=== PATIENT | female | born 1985 | race Caucasian/White ===

== ENCOUNTER → 2016-10-21 | Outpatient (CLI) | payer OTHER | LOC: MW.LAB 11:02 | PROVIDERS: ATTEND Obstetrics & Gynecology | DX: D06.9 Carcinoma in situ of cervix, unspecified (principal) | CPT/HCPCS: 36415; 84144 ==

== ENCOUNTER 2017-05-28 21:58 | Inpatient (IN) | payer OTHER ==
[2017-05-28] MEDS ORDERED: Carboprost Tromethamine 250 MCG/1 ML Amp IM PRN (22:06)
[2017-05-28] MEDS ORDERED: Methylergonovine 0.2 MG/1 ML Amp IM PRN (22:06)
[2017-05-28] MEDS ORDERED: Sodium Chloride 0.9% 10 ML Syringe FLUSH PRN (22:06)
[2017-05-28] MEDS ORDERED: Nalbuphine 10 MG/1 ML Vial IVPUSH PRN (22:06)
[2017-05-28] MEDS ORDERED: Misoprostol 25 MCG (1/4 of 100 MCG) Tab VAG PRN (22:06)
[2017-05-28] MEDS ORDERED: Sodium Chloride 0.9% 2.5 ML Syringe FLUSH PRN (22:06)
[2017-05-28] MEDS ORDERED: Butorphanol 1 MG/ML SDV IVPUSH PRN (22:06)
[2017-05-28] MEDS ORDERED: Misoprostol 200 MCG Tab PO PRN (22:06)
[2017-05-28] MEDS ORDERED: Lidocaine 1% 50 ML MDV INJECT PRN (22:06)
[2017-05-28] MEDS ORDERED: Terbutaline 1 MG/ML SDV SUBCUT PRN (22:06)
[2017-05-28] MEDS ORDERED: Water For Irrigation,Sterile 1,000 ML Container IRR PRN (22:06)
[2017-05-28] MEDS ORDERED: Misoprostol 25 MCG (1/4 of 100 MCG) Tab VAG SCH (22:15)
[2017-05-28] MEDS ORDERED: Oxytocin/0.9 % Sodium Chloride 30 UNIT/500 ML BAG IV SCH ×2 (22:15)
[2017-05-28] MEDS: Lactated Ringers 1,000 ML IV SCH (22:30)
[2017-05-29] MEDS: Lactated Ringers 1,000 ML IV SCH (00:35)
[2017-05-29] MEDS ORDERED: Promethazine 25 MG/ML SDV ONE (01:23)
[2017-05-29] MEDS ORDERED: Ibuprofen 400 MG Tab PO PRN (02:08)
[2017-05-29] MEDS ORDERED: Benzocaine/Menthol 20%-0.5% Spray 78 GM Cannister TOP PRN (02:08)
[2017-05-29] MEDS ORDERED: Bisacodyl 10 MG Supp RECTAL PRN (02:08)
[2017-05-29] MEDS ORDERED: Witch Hazel Medicated Pads 40/Jar TOP PRN (02:08)
[2017-05-29] MEDS ORDERED: Docusate Sodium 100 MG Cap PO PRN (02:08)
[2017-05-29] MEDS ORDERED: Acetaminophen 500 MG Tab PO PRN (02:08)
[2017-05-29] MEDS ORDERED: Lanolin 100% Cream 7 GM Tube TOP PRN (02:08)
[2017-05-29] MEDS ORDERED: Ampicillin/Sulbactam Na 3 GM in Sodium Chloride 0.9% 100 ML IV SCH ×2 (02:15→07:54)
--- NOTE | 2017-05-29 02:38 | PCM.PREANE ---
Preanesthetic Assessment - Procedure Proposed Procedure: 4th degree laceration repair (EUA) - Anesthesia/Transfusion/Family Hx Anesthesia History: Prior Anesthesia Without Reaction Family History of Anesthesia Reaction: No Intubation History: Unknown - Review of Systems General: Other (vaginal pain (s/p )) Pulmonary: No Symptoms Cardiovascular: No Symptoms Gastrointestinal: Other (GERD of ) Neurological: Other Other: Reports: None - Physical Assessment NPO Status Date: 05/29/17 NPO Status Time: 18:00 (solids) Height: 5 ft 3 in Weight: 170 lb 2 oz ASA Class: 2E Mental Status: Alert & Oriented x3 Airway Class: Mallampati = 1 Dentition: Reports: Normal Dentition Thyro-Mental Finger Breadths: 3 Mouth Opening Finger Breadths: 3 ROM/Head Extension: Full Lungs: Clear to Auscultation, Normal Respiratory Effort Cardiovascular: Regular Rate, Regular Rhythm, No Murmurs - Lab Values: Laboratory Last Values WBC 11.70 K/uL (4.0-11.0) H 05/28/17 22:25 RBC 3.85 M/uL (4.30-5.90) L 05/28/17 22:25 Hgb 11.8 g/dL (12.0-16.0) L 05/28/17 22:25 Hct 35.8 % (36.0-46.0) L 05/28/17 22:25 MCV 93.0 fL (80.0-98.0) 05/28/17 22:25 MCH 30.6 pg (27.0-32.0) 05/28/17 22:25 MCHC 33.0 g/dL (31.0-37.0) 05/28/17 22:25 RDW Std Deviation 51.1 fl (28.0-62.0) 05/28/17 22:25 RDW Coeff of Mike 15 % (11.0-15.0) 05/28/17 22:25 Plt Count 219 K/uL (150-400) 05/28/17 22:25 MPV 11.70 fL (7.40-12.00) 05/28/17 22:25 Nucleated RBC % 0.0 /100WBC 05/28/17 22:25 Nucleated RBCs # 0 K/uL 05/28/17 22:25 Membrane Rupture POSITIVE 05/28/17 23:37 Blood Type A POSITIVE 05/28/17 22:25 Antibody Screen NEGATIVE 05/28/17 22:25 - Allergies Allergies/Adverse Reactions: Allergies Allergy/AdvReac Type Severity Reaction Status Date / Time sauk-[place] Allergy Hives Verified 05/28/17 22:23 - Blood Blood Available: Yes Product(s) Available: PRBC (T and S) - Anesthesia Plan Pre-Op Medication Ordered: None - Acknowledgements Anesthesia Type Planned: General Anesthesia (water intake over last 8 hrs) Pt an Appropriate Candidate for the Planned Anesthesia: Yes Alternatives and Risks of Anesthesia Discussed w Pt/Guardian: Yes Pt/Guardian Understands and Agrees with Anesthesia Plan: Yes PreAnesthesia Questionnaire - CURRENT (IN HOUSE) MEDS Current Meds: Current Medications Acetaminophen (Tylenol Extra Strength) 500 mg PO Q4H PRN PRN Reason: Pain Acetaminophen (Tylenol Extra Strength) 1,000 mg PO Q4H PRN PRN Reason: Pain Benzocaine/Menthol (Dermoplast Pain Relief 20%-0.5% [place]) 78 gm TOP ASDIRECTED PRN PRN Reason: Perineal Comfort Measure Bisacodyl (Dulcolax) 10 mg RECTAL .ONCE PRN PRN Reason: Constipation Butorphanol Tartrate (Stadol) 1 mg IVPUSH Q1H PRN PRN Reason: Pain Last Admin: 05/29/17 01:14 Dose: 1 mg Carboprost Tromethamine (Hemabate Ds) 250 mcg IM ASDIRECTED PRN PRN Reason: Post Hemorrhage Docusate Sodium (Colace) 100 mg PO BID PRN PRN Reason: Constipation Emollient Ointment (Lansinoh Hpa) 0 gm TOP ASDIRECTED PRN PRN Reason: Sore Nipples Lactated Ringer's (Ringers, Lactated) 1,000 mls @ 150 mls/hr IV ASDIRECTED AIDAN Last Admin: 05/29/17 00:35 Dose: 150 mls/hr Oxytocin/Sodium Chloride (Oxytocin 30 Unit/500 Ml-Ns) 30 unit in 500 mls @ 500 mls/hr IV TITRATE AIDAN Last Admin: 05/29/17 02:12 Dose: 999 mls/hr Oxytocin/Sodium Chloride (Oxytocin 30 Unit/500 Ml-Ns) 30 unit in 500 mls @ 2 mls/hr IV TITRATE AIDAN; 2 MUNITS/MIN PRN Reason: Protocol Last Titration: 05/28/17 23:33 Dose: 4 munits/min, 4 mls/hr Ampicillin Sodium/Sulbactam (Sodium 3 gm/ Sodium Chloride) 100 mls @ 200 mls/ hr IV Q6H AIDAN Ibuprofen (Motrin) 400 mg PO Q4H PRN PRN Reason: Pain Ibuprofen (Motrin) 800 mg PO Q6H PRN PRN Reason: Pain Lidocaine HCl (Xylocaine 1%) 50 ml INJECT .ONCE PRN PRN Reason: Laceration repair Last Admin: 05/29/17 01:00 Dose: 50 ml Methylergonovine Maleate (Methergine) 0.2 mg IM ASDIRECTED PRN PRN Reason: Post Hemorrhage Last Admin: 05/29/17 02:14 Dose: 0.2 mg Misoprostol (Cytotec) 200 mcg PO .ONCE PRN PRN Reason: Post Hemorrhage Misoprostol (Cytotec) 25 mcg VAG .ONCE AIDAN Misoprostol (Cytotec) 25 mcg VAG Q6H PRN PRN Reason: Cervical Ripening Nalbuphine HCl (Nubain) 10 mg IVPUSH Q1H PRN PRN Reason: Pain (severe 7-10) Oxycodone HCl (Oxycodone) 5 mg PO Q2H PRN PRN Reason: Pain Sodium Chloride (Saline Flush) 10 ml FLUSH ASDIRECTED PRN PRN Reason: Keep Vein Open Sodium Chloride (Saline Flush) 2.5 ml FLUSH ASDIRECTED PRN PRN Reason: Keep Vein Open Sterile Water (Sterile Water For Irrigation) 1,000 ml IRR ASDIRECTED PRN PRN Reason: delivery Last Admin: 05/29/17 01:00 Dose: 1,000 ml Terbutaline Sulfate (Brethine) 0.25 mg SUBCUT ASDIRECTED PRN PRN Reason: Tacysystole Witch Jessica (Tucks) 1 pad TOP ASDIRECTED PRN PRN Reason: comfort care Discontinued Medications Promethazine HCl (Phenergan) Confirm Administered Dose 25 mg .ROUTE .STK-MED ONE Stop: 05/29/17 01:24 Last Admin: 05/29/17 01:25 Dose: 25 mg
[2017-05-29] MEDS ORDERED: fentaNYL 100 MCG/2 ML SDV ONE ×2 (02:50→04:23)
[2017-05-29] MEDS ORDERED: Propofol 200 MG/20 ML SDV ONE (02:50)
[2017-05-29] MEDS ORDERED: Succinylcholine/Normal Saline 200 MG/10 ML Syringe ONE (02:50)
[2017-05-29] MEDS ORDERED: Sodium Chloride 0.9% 20 ML ONE (02:50)
[2017-05-29] MEDS ORDERED: Midazolam 1 MG/ML 2 ML SDV ONE (02:51)
[2017-05-29] MEDS ORDERED: Methylergonovine 0.2 MG/1 ML Amp ONE (03:36)
--- NOTE | 2017-05-29 04:51 | PCM.POSTAN ---
POST ANESTHESIA ASSESSMENT - MENTAL STATUS Mental Status: Oriented, Somnolent - VITAL SIGNS Pulse Rate: 100 SaO2: 100 Resp Rate: 20 Blood Pressure: 118/74 - RESPIRATORY Respiratory Status: Respiratory Rate WNL, Airway Patent, O2 Saturation Stable, Supplemental Oxygen (Return to OB ) - CARDIOVASCULAR CV Status: Pulse Rate WNL, Blood Pressure Stable - GASTROINTESTINAL GI Status: No Symptoms - POST OP HYDRATION Hydration Status: Adequate & Stable - OBSERVATIONS Free Text/Narrative:: Transfer back to OB.
--- NOTE | 2017-05-29 05:26 | PCM.DEL ---
L & D Note - General Info Date of Service: 05/29/17 Mother's Due Date: 06/02/17 - Delivery Note Labor: Augmented by Oxytocin Delivery Outcome: Livebirth Presentation: Vertex Nuchal Cord: None Anesthesia Type: Local Amniotic Fluid Description: Clear Episiotomy Type: None Laceration: 4th Degree Suture type: Other (repaired in OR ) Suture size: 2-0 Cord: 3 Vessels Estimated Blood Loss: 400 Whitlash: Bulb Syringe Provider: Nola Moy Score 1 min: 8 Score 5 min: 9 Delivery Comments (Free Text/Narrative):: Male delivered 3320g 3rd degree laceration repaired in OR - Patient Data Vitals - Most Recent: Last Vital Signs Temp 36.9 C 05/29/17 04:34 Pulse 96 05/29/17 05:02 Resp 16 05/29/17 05:02 BP 117/81 05/29/17 05:02 Pulse Ox 97 05/29/17 05:02 Weight - Most Recent: 77.167 kg I&O - Last 24 Hours: Intake & Output 05/28/17 05/28/17 05/29/17 14:59 22:59 06:59 Intake Total 1100 Output Total 200 Balance 900 Lab Results Last 24 Hours: Laboratory Results - last 24 hr 05/28/17 05/28/17 05/28/17 Range/Units 22:25 22:25 23:37 WBC 11.70 H (4.0-11.0) K/uL RBC 3.85 L (4.30-5.90) M/uL Hgb 11.8 L (12.0-16.0) g/dL Hct 35.8 L (36.0-46.0) % MCV 93.0 (80.0-98.0) fL MCH 30.6 (27.0-32.0) pg MCHC 33.0 (31.0-37.0) g/dL RDW Std Deviation 51.1 (28.0-62.0) fl RDW Coeff of Mike 15 (11.0-15.0) % Plt Count 219 (150-400) K/uL MPV 11.70 (7.40-12.00) fL Nucleated RBC % 0.0 /100WBC Nucleated RBCs # 0 K/uL Membrane Rupture POSITIVE Blood Type A POSITIVE Antibody Screen NEGATIVE Med Orders - Current: Current Medications Acetaminophen (Tylenol Extra Strength) 500 mg PO Q4H PRN PRN Reason: Pain Acetaminophen (Tylenol Extra Strength) 1,000 mg PO Q4H PRN PRN Reason: Pain Benzocaine/Menthol (Dermoplast Pain Relief 20%-0.5% [place]) 78 gm TOP ASDIRECTED PRN PRN Reason: Perineal Comfort Measure Bisacodyl (Dulcolax) 10 mg RECTAL .ONCE PRN PRN Reason: Constipation Butorphanol Tartrate (Stadol) 1 mg IVPUSH Q1H PRN PRN Reason: Pain Last Admin: 05/29/17 01:14 Dose: 1 mg Carboprost Tromethamine (Hemabate Ds) 250 mcg IM ASDIRECTED PRN PRN Reason: Post Hemorrhage Docusate Sodium (Colace) 100 mg PO BID AIDAN Emollient Ointment (Lansinoh Hpa) 0 gm TOP ASDIRECTED PRN PRN Reason: Sore Nipples Lactated Ringer's (Ringers, Lactated) 1,000 mls @ 150 mls/hr IV ASDIRECTED AIDAN Last Admin: 05/29/17 00:35 Dose: 150 mls/hr Oxytocin/Sodium Chloride (Oxytocin 30 Unit/500 Ml-Ns) 30 unit in 500 mls @ 500 mls/hr IV TITRATE AIDAN Last Admin: 05/29/17 02:12 Dose: 999 mls/hr Oxytocin/Sodium Chloride (Oxytocin 30 Unit/500 Ml-Ns) 30 unit in 500 mls @ 2 mls/hr IV TITRATE AIDAN; 2 MUNITS/MIN PRN Reason: Protocol Last Titration: 05/28/17 23:33 Dose: 4 munits/min, 4 mls/hr Ampicillin Sodium/Sulbactam (Sodium 3 gm/ Sodium Chloride) 100 mls @ 200 mls/ hr IV Q6H [facility] Last Admin: 05/29/17 03:06 Dose: 200 mls/hr Ibuprofen (Motrin) 400 mg PO Q4H PRN PRN Reason: Pain Ibuprofen (Motrin) 800 mg PO Q6H PRN PRN Reason: Pain Lidocaine HCl (Xylocaine 1%) 50 ml INJECT .ONCE PRN PRN Reason: Laceration repair Last Admin: 05/29/17 01:00 Dose: 50 ml Methylergonovine Maleate (Methergine) 0.2 mg IM ASDIRECTED PRN PRN Reason: Post Hemorrhage Last Admin: 05/29/17 02:14 Dose: 0.2 mg Misoprostol (Cytotec) 200 mcg PO .ONCE PRN PRN Reason: Post Hemorrhage Misoprostol (Cytotec) 25 mcg VAG .ONCE AIDAN Misoprostol (Cytotec) 25 mcg VAG Q6H PRN PRN Reason: Cervical Ripening Oxycodone HCl (Oxycodone) 5 mg PO Q2H PRN PRN Reason: Pain Sodium Chloride (Saline Flush) 10 ml FLUSH ASDIRECTED PRN PRN Reason: Keep Vein Open Sodium Chloride (Saline Flush) 2.5 ml FLUSH ASDIRECTED PRN PRN Reason: Keep Vein Open Sterile Water (Sterile Water For Irrigation) 1,000 ml IRR ASDIRECTED PRN PRN Reason: delivery Last Admin: 05/29/17 01:00 Dose: 1,000 ml Terbutaline Sulfate (Brethine) 0.25 mg SUBCUT ASDIRECTED PRN PRN Reason: Tacysystole Witch Jessica (Tucks) 1 pad TOP ASDIRECTED PRN PRN Reason: comfort care Discontinued Medications Docusate Sodium (Colace) 100 mg PO BID PRN PRN Reason: Constipation Fentanyl (Sublimaze) Confirm Administered Dose 100 mcg .ROUTE .STK-MED ONE Stop: 05/29/17 02:51 Fentanyl (Sublimaze) Confirm Administered Dose 100 mcg .ROUTE .STK-MED ONE Stop: 05/29/17 04:24 Sodium Chloride (Normal Saline) Confirm Administered Dose 20 mls @ as directed .ROUTE .STK-MED ONE Stop: 05/29/17 02:51 Methylergonovine Maleate (Methergine) Confirm Administered Dose 0.2 mg .ROUTE .STK-MED ONE Stop: 05/29/17 03:37 Midazolam HCl (Versed 1 Mg/Ml) Confirm Administered Dose 2 mg .ROUTE .STK-MED ONE Stop: 05/29/17 02:52 Nalbuphine HCl (Nubain) 10 mg IVPUSH Q1H PRN PRN Reason: Pain (severe 7-10) Promethazine HCl (Phenergan) Confirm Administered Dose 25 mg .ROUTE .STK-MED ONE Stop: 05/29/17 01:24 Last Admin: 05/29/17 01:25 Dose: 25 mg Propofol (Diprivan 20 Ml) Confirm Administered Dose 200 mg .ROUTE .STK-MED ONE Stop: 05/29/17 02:51 Succinylcholine Chloride (Succinylcholine In Ns Pf) Confirm Administered Dose 200 mg .ROUTE .STK-MED ONE Stop: 05/29/17 02:51 - Problem List & Annotations (1) Vaginal delivery SNOMED Code(s): 956518651 Code(s): O80 - ENCOUNTER FOR FULL-TERM UNCOMPLICATED DELIVERY Status: Acute Current Visit: Yes (2) Fourth degree perineal laceration SNOMED Code(s): 950273332 Code(s): O70.3 - FOURTH DEGREE PERINEAL LACERATION DURING DELIVERY Status: Acute Current Visit: Yes - Problem List Review Problem List Initiated/Reviewed/Updated: Yes - My Orders Last 24 Hours: My Active Orders 05/29/17 02:08 Patient Status [ADT] Routine May Shower [RC] ASDIRECTED Up ad Janice [RC] ASDIRECTED Vital Signs [RC] PER UNIT ROUTINE Acetaminophen [Tylenol Extra Strength] 1,000 mg PO Q4H PRN Acetaminophen [Tylenol Extra Strength] 500 mg PO Q4H PRN Benzocaine/Menthol [Dermoplast Pain Relief 20%-0.5% [place]] 78 gm TOP ASDIRECTED PRN Bisacodyl [Dulcolax] 10 mg RECTAL .ONCE PRN Ibuprofen [Motrin] 400 mg PO Q4H PRN Ibuprofen [Motrin] 800 mg PO Q6H PRN Lanolin [Lansinoh HPA] See Dose Instructions TOP ASDIRECTED PRN Witch Jessica [Tucks] 1 pad TOP ASDIRECTED PRN oxyCODONE 5 mg PO Q2H PRN Assess Lochia [WOMSER] Per Unit Routine Assess Uterine Involution [WOMSER] Per Unit Routine Peripheral IV Discontinue [OM.PC] Routine 05/29/17 02:15 Ampicillin/Sulbactam Na [Unasyn] 3 gm Sodium Chloride 0.9% [Normal Saline] 100 ml IV Q6H 05/29/17 09:00 Docusate Sodium [Colace] 100 mg PO BID 05/29/17 Breakfast Low Residue [Low Fiber Diet] [DIET] 05/30/17 05:11 HEMOGLOBIN/HEMATOCRIT,HH [HEME] Timed
--- NOTE | 2017-05-29 05:29 | PCM.OPNOTE ---
- General Post-Op/Procedure Note Date of Surgery/Procedure: 05/29/17 Operative Procedure(s): Examination under anaesthesia and Repair of fourth degree laceration Findings: After delivery 4th degree perineal laceration noted Laceration repaired in layers Rectal mucosa , then internal sphincter , then external sphincter then vaginal mucosa and perineal body Pre Op Diagnosis: S/p with fourth degree laceration Post-Op Diagnosis: same Anesthesia Technique: MAC Primary Surgeon: Adal Hernandez Anesthesia Provider: Robert Nieto Fluid Replacement, Intraop: 800 EBL in mLs: 100 Condition: Good Free Text/Narrative:: Intake & Output 05/28/17 05/28/17 05/29/17 14:59 22:59 06:59 Intake Total 1100 Output Total 200 Balance 900
[2017-05-29] MEDS: Acetaminophen 500 MG Tab PO PRN ×2 (08:06→16:14)
[2017-05-29] MEDS: Docusate Sodium 100 MG Cap PO SCH ×2 (08:06→21:01)
[2017-05-29] MEDS: oxyCODONE 5 MG Tab PO PRN ×2 (08:08→16:15)
--- NOTE | 2017-05-29 08:12 | PCM48HPAN ---
Post Anesthesia Note - EVALUATION WITHIN 48HRS OF ANESTHETIC Vital Signs in Normal Range: Yes Patient Participated in Evaluation: Yes Respiratory Function Stable: Yes Airway Patent: Yes Cardiovascular Function Stable: Yes Hydration Status Stable: Yes Pain Control Satisfactory: Yes Nausea and Vomiting Control Satisfactory: Yes Mental Status Recovered: Yes
--- NOTE | 2017-05-29 08:15 | PCM.PNPP ---
- General Info Date of Service: 05/29/17 Functional Status: Reports: Pain Controlled (using narcotic pain medications.), Tolerating Diet, Urinating. Denies: Ambulating - Review of Systems General: Reports: No Symptoms HEENT: Reports: No Symptoms Pulmonary: Reports: No Symptoms Cardiovascular: Reports: No Symptoms Gastrointestinal: Reports: No Symptoms Genitourinary: Reports: No Symptoms Musculoskeletal: Reports: No Symptoms Skin: Reports: No Symptoms Neurological: Reports: No Symptoms Psychiatric: Reports: No Symptoms - General Info Date of Service: 05/29/17 - Patient Data Vital Signs - Most Recent: Last Vital Signs Temp 36.9 C 05/29/17 06:10 Pulse 87 05/29/17 06:40 Resp 18 05/29/17 06:40 BP 140/88 05/29/17 06:40 Pulse Ox 96 05/29/17 06:40 Weight - Most Recent: 77.167 kg I&O - Last 24 Hours: Intake & Output 05/28/17 05/29/17 05/29/17 22:59 06:59 14:59 Intake Total 1900 Output Total 500 Balance 1400 Lab Results - Last 24 Hours: Laboratory Results - last 24 hr 05/28/17 05/28/17 05/28/17 Range/Units 22:25 22:25 23:37 WBC 11.70 H (4.0-11.0) K/uL RBC 3.85 L (4.30-5.90) M/uL Hgb 11.8 L (12.0-16.0) g/dL Hct 35.8 L (36.0-46.0) % MCV 93.0 (80.0-98.0) fL MCH 30.6 (27.0-32.0) pg MCHC 33.0 (31.0-37.0) g/dL RDW Std Deviation 51.1 (28.0-62.0) fl RDW Coeff of Mike 15 (11.0-15.0) % Plt Count 219 (150-400) K/uL MPV 11.70 (7.40-12.00) fL Nucleated RBC % 0.0 /100WBC Nucleated RBCs # 0 K/uL Membrane Rupture POSITIVE Blood Type A POSITIVE Antibody Screen NEGATIVE Med Orders - Current: Current Medications Acetaminophen (Tylenol Extra Strength) 500 mg PO Q4H PRN PRN Reason: Pain Last Admin: 05/29/17 08:06 Dose: 500 mg Acetaminophen (Tylenol Extra Strength) 1,000 mg PO Q4H PRN PRN Reason: Pain Benzocaine/Menthol (Dermoplast Pain Relief 20%-0.5% [place]) 78 gm TOP ASDIRECTED PRN PRN Reason: Perineal Comfort Measure Last Admin: 05/29/17 06:37 Dose: 1 canister Bisacodyl (Dulcolax) 10 mg RECTAL .ONCE PRN PRN Reason: Constipation Butorphanol Tartrate (Stadol) 1 mg IVPUSH Q1H PRN PRN Reason: Pain Last Admin: 05/29/17 01:14 Dose: 1 mg Carboprost Tromethamine (Hemabate Ds) 250 mcg IM ASDIRECTED PRN PRN Reason: Post Hemorrhage Docusate Sodium (Colace) 100 mg PO BID AIDAN Last Admin: 05/29/17 08:06 Dose: 100 mg Emollient Ointment (Lansinoh Hpa) 0 gm TOP ASDIRECTED PRN PRN Reason: Sore Nipples Last Admin: 05/29/17 06:38 Dose: 1 tube Lactated Ringer's (Ringers, Lactated) 1,000 mls @ 150 mls/hr IV ASDIRECTED AIDAN Last Admin: 05/29/17 00:35 Dose: 150 mls/hr Oxytocin/Sodium Chloride (Oxytocin 30 Unit/500 Ml-Ns) 30 unit in 500 mls @ 500 mls/hr IV TITRATE AIDAN Last Admin: 05/29/17 02:12 Dose: 999 mls/hr Oxytocin/Sodium Chloride (Oxytocin 30 Unit/500 Ml-Ns) 30 unit in 500 mls @ 2 mls/hr IV TITRATE AIDAN; 2 MUNITS/MIN PRN Reason: Protocol Last Titration: 05/28/17 23:33 Dose: 4 munits/min, 4 mls/hr Ampicillin Sodium/Sulbactam (Sodium 3 gm/ Sodium Chloride) 100 mls @ 200 mls/ hr IV Q6H AIDAN Ibuprofen (Motrin) 400 mg PO Q4H PRN PRN Reason: Pain Ibuprofen (Motrin) 800 mg PO Q6H PRN PRN Reason: Pain Lidocaine HCl (Xylocaine 1%) 50 ml INJECT .ONCE PRN PRN Reason: Laceration repair Last Admin: 05/29/17 01:00 Dose: 50 ml Methylergonovine Maleate (Methergine) 0.2 mg IM ASDIRECTED PRN PRN Reason: Post Hemorrhage Last Admin: 05/29/17 02:14 Dose: 0.2 mg Misoprostol (Cytotec) 200 mcg PO .ONCE PRN PRN Reason: Post Hemorrhage Misoprostol (Cytotec) 25 mcg VAG .ONCE AIDAN Misoprostol (Cytotec) 25 mcg VAG Q6H PRN PRN Reason: Cervical Ripening Oxycodone HCl (Oxycodone) 5 mg PO Q2H PRN PRN Reason: Pain Last Admin: 05/29/17 08:08 Dose: 5 mg Sodium Chloride (Saline Flush) 10 ml FLUSH ASDIRECTED PRN PRN Reason: Keep Vein Open Sodium Chloride (Saline Flush) 2.5 ml FLUSH ASDIRECTED PRN PRN Reason: Keep Vein Open Sterile Water (Sterile Water For Irrigation) 1,000 ml IRR ASDIRECTED PRN PRN Reason: delivery Last Admin: 05/29/17 01:00 Dose: 1,000 ml Terbutaline Sulfate (Brethine) 0.25 mg SUBCUT ASDIRECTED PRN PRN Reason: Tacysystole Witch Jessica (Tucks) 1 pad TOP ASDIRECTED PRN PRN Reason: comfort care Last Admin: 05/29/17 06:37 Dose: 1 tub Discontinued Medications Docusate Sodium (Colace) 100 mg PO BID PRN PRN Reason: Constipation Fentanyl (Sublimaze) Confirm Administered Dose 100 mcg .ROUTE .STK-MED ONE Stop: 05/29/17 02:51 Fentanyl (Sublimaze) Confirm Administered Dose 100 mcg .ROUTE .STK-MED ONE Stop: 05/29/17 04:24 Ampicillin Sodium/Sulbactam (Sodium 3 gm/ Sodium Chloride) 100 mls @ 200 mls/ hr IV Q6H [facility] Last Admin: 05/29/17 03:06 Dose: 200 mls/hr Sodium Chloride (Normal Saline) Confirm Administered Dose 20 mls @ as directed .ROUTE .STK-MED ONE Stop: 05/29/17 02:51 Ampicillin Sodium/Sulbactam (Sodium 3 gm/ Sodium Chloride) 100 mls @ 200 mls/ hr IV Q6H [facility] Methylergonovine Maleate (Methergine) Confirm Administered Dose 0.2 mg .ROUTE .STK-MED ONE Stop: 05/29/17 03:37 Midazolam HCl (Versed 1 Mg/Ml) Confirm Administered Dose 2 mg .ROUTE .STK-MED ONE Stop: 05/29/17 02:52 Nalbuphine HCl (Nubain) 10 mg IVPUSH Q1H PRN PRN Reason: Pain (severe 7-10) Promethazine HCl (Phenergan) Confirm Administered Dose 25 mg .ROUTE .STK-MED ONE Stop: 05/29/17 01:24 Last Admin: 05/29/17 01:25 Dose: 25 mg Propofol (Diprivan 20 Ml) Confirm Administered Dose 200 mg .ROUTE .STK-MED ONE Stop: 05/29/17 02:51 Succinylcholine Chloride (Succinylcholine In Ns Pf) Confirm Administered Dose 200 mg .ROUTE .STK-MED ONE Stop: 05/29/17 02:51 - Interaction Infant Disposition, : in Room with Family Infant Interaction: Holding Infant Infant Feeding: Breastfed Infant; Nursed Well Support Person: - Recovery Exam Fundal Tone: Firm Fundal Level: 1 Fingerbreadths Below Umbilicus Fundal Placement: Midline Lochia Amount: Scant Lochia Color: Rubra/Red Perineum Description: Other (see below) Other Perinuem Description: 4th degree with repair done in OR under general anesthisa. Episiotomy/Laceration: Approximated - Exam General: Alert, Oriented Lungs: Normal Respiratory Effort GI/Abdominal Exam: Normal Bowel Sounds, Soft, Non-Tender, No Distention, No Mass Extremities: Normal Inspection, Non-Tender, No Pedal Edema Skin: Dry, Intact Neurological: No New Focal Deficit Psy/Mental Status: Alert, Normal Affect, Normal Mood - Problem List & Annotations (1) Fourth degree perineal laceration SNOMED Code(s): 641215606 Code(s): O70.3 - FOURTH DEGREE PERINEAL LACERATION DURING DELIVERY Status: Acute Current Visit: Yes (2) Vaginal delivery SNOMED Code(s): 682200817 Code(s): O80 - ENCOUNTER FOR FULL-TERM UNCOMPLICATED DELIVERY Status: Acute Current Visit: Yes - Problem List Review Problem List Initiated/Reviewed/Updated: Yes - My Orders Last 24 Hours: My Active Orders 05/28/17 22:06 Patient Status [ADT] Routine May Shower [RC] ASDIRECTED Notify Provider [RC] PRN Oxygen Therapy [RC] ASDIRECTED Up ad Janice [RC] ASDIRECTED Vital Signs [RC] PER UNIT ROUTINE Butorphanol [Stadol] 1 mg IVPUSH Q1H PRN Carboprost Tromethamine [Hemabate DS] 250 mcg IM ASDIRECTED PRN Lidocaine 1% [Xylocaine 1%] 50 ml INJECT .ONCE PRN Methylergonovine [Methergine] 0.2 mg IM ASDIRECTED PRN Misoprostol [Cytotec] 200 mcg PO .ONCE PRN Misoprostol [Cytotec] 25 mcg VAG Q6H PRN Sodium Chloride 0.9% [Saline Flush] 10 ml FLUSH ASDIRECTED PRN Sodium Chloride 0.9% [Saline Flush] 2.5 ml FLUSH ASDIRECTED PRN Terbutaline [Brethine] 0.25 mg SUBCUT ASDIRECTED PRN Water For Irrigation,Sterile [Sterile Water for Irrigation] 1,000 ml IRR ASDIRECTED PRN Scalp Electrode [WOMSER] Per Unit Routine Peripheral IV Insertion Adult [OM.PC] Routine Resuscitation Status Routine 05/28/17 22:15 Lactated Ringers [Ringers, Lactated] 1,000 ml IV ASDIRECTED Misoprostol [Cytotec] 25 mcg VAG .ONCE Oxytocin/0.9 % Sodium Chloride [Oxytocin 30 Unit/500 ML-NS] 30 unit in 500 ml IV TITRATE Oxytocin/0.9 % Sodium Chloride [Oxytocin 30 Unit/500 ML-NS] 30 unit in 500 ml IV TITRATE Medication Administration Instruction [OM.PC] Q3H - Assessment Assessment:: PPD#1 after precipitous labor and delivery with 4th degree lacerations, total active labor was approximately 1 hour. Pain is controlled with oral pain medications, has not yet ambulated since repair of lacerations. She is well, minimal lochia. - Plan Plan:: Continue care. Continue with perineal care, stool softeners and antibiotics.
[2017-05-29] MEDS: Ampicillin/Sulbactam Na 3 GM in Sodium Chloride 0.9% 100 ML IV SCH ×3 (08:56→22:35)
--- NOTE | 2017-05-29 11:59 | OR ---
SURGEON: JANINA MEJIA DATE OF PROCEDURE: 05/29/2017 PREOPERATIVE DIAGNOSIS: A 32-year-old, G1, P0, at 39 weeks and 3 days, for induction of labor secondary to IVF . POSTOPERATIVE DIAGNOSES: Induction of labor for IVF , status post normal spontaneous vaginal delivery, fourth-degree laceration. PROCEDURES: Normal spontaneous vaginal delivery, Examination under anesthesia, Repair of fourth-degree laceration. ESTIMATED BLOOD LOSS: 400 mL for vaginal delivery and 100 mL for EUA. IV FLUIDS: 800 mL. FINDINGS: A live male delivered at 0100 hours. scores were 8 and 9. Weight was 3320 grams. The patient received Methergine 0.2 mg x1 and 30 units of Pitocin x2. The perineum was inspected and revealed a fourth-degree laceration. As a result, Anesthesia was consulted, and repair was done in the operating room under MAC anesthesia. ANESTHESIA: MAC. BACKGROUND: The patient is a 32-year-old, G1, P0, who had an IVF , was followed up, and was scheduled for induction of labor. The patient otherwise had a low-risk . On admission patient was 4cm dilated she was started on pitocin and made cervical change to Full dilatation. Patient was encouraged to push and delivered a live male . After delivery uterus was noted to be atonic so methergine was given with IV pitocin 30IU in saline running. Perineum was inspected and a fourth degree laceration was noted . at this point Anaesthesia was informed and patient taken to the OR for repair DESCRIPTION OF PROCEDURE: The patient was admitted for induction. She was found to be 4 cm dilated. Pitocin was started. After the Pitocin was started, the patient changed to 5 cm and fully dilated within 4 hours. The patient then delivered the head, followed by the anterior and posterior shoulders, and the body. The baby was placed on the mother's abdomen ,delayed cord clamping was done. Upon inspection of the perineum, a fourth- degree laceration was noted. The vaginal mucosa that was bleeding was sutured. Anesthesia was consulted. The patient was then taken to the operating room and an examination under anesthesia yielded extensive tear of the sphincters, internal and external sphincters, into the rectal mucosa. The repair was done in layers. Continuous non locking suturing was done with Vicryl 2-0 in the rectal mucosa, the internal sphincter was repaired with 2-0 Vicryl continuous non locking stitches , and external sphincter was repaired with mattress sutures. The vaginal mucosa was then repaired with interlocking sutures of 2-0 Monocryl. The rectum was examined after the procedure and was found to be intact with a good tone. The patient tolerated the procedure well and was taken to the recovery room in a stable condition. The patient will continue a low- residue diet and antibiotics for 24hrs RICHELLE GAXIOLA /[id number] MTDD
[2017-05-29] MEDS: Ibuprofen 800 MG Tab PO PRN ×2 (12:11→22:00)
[2017-05-30] MEDS: Ibuprofen 800 MG Tab PO PRN (04:25)
[2017-05-30] MEDS: Ampicillin/Sulbactam Na 3 GM in Sodium Chloride 0.9% 100 ML IV SCH ×2 (05:06→11:01)
--- NOTE | 2017-05-30 08:11 | PCM.PNPP ---
<Cindy El - Last Filed: 05/30/17 08:17> - General Info Date of Service: 05/30/17 Functional Status: Reports: Pain Controlled, Tolerating Diet, Ambulating, Urinating - Review of Systems General: Denies: Fever, Weakness Pulmonary: Denies: Shortness of Breath, Pleuritic Chest Pain, Cough Cardiovascular: Denies: Chest Pain, Palpitations, Dyspnea on Exertion Gastrointestinal: Denies: Abdominal Pain Genitourinary: Denies: Dysuria - General Info Date of Service: 05/30/17 - Patient Data Vital Signs - Most Recent: Last Vital Signs Temp 36.6 C 05/30/17 06:00 Pulse 88 05/30/17 06:00 Resp 17 05/30/17 06:00 BP 99/63 05/30/17 06:00 Pulse Ox 98 05/30/17 06:00 Weight - Most Recent: 77.167 kg I&O - Last 24 Hours: Intake & Output 05/29/17 05/30/17 05/30/17 22:59 06:59 14:59 Intake Total 100 Balance 100 Lab Results - Last 24 Hours: Laboratory Results - last 24 hr 05/30/17 Range/Units 05:31 Hgb 8.7 L (12.0-16.0) g/dL Hct 26.2 L (36.0-46.0) % Med Orders - Current: Current Medications Acetaminophen (Tylenol Extra Strength) 500 mg PO Q4H PRN PRN Reason: Pain Last Admin: 05/29/17 16:14 Dose: 500 mg Acetaminophen (Tylenol Extra Strength) 1,000 mg PO Q4H PRN PRN Reason: Pain Benzocaine/Menthol (Dermoplast Pain Relief 20%-0.5% [place]) 78 gm TOP ASDIRECTED PRN PRN Reason: Perineal Comfort Measure Last Admin: 05/29/17 06:37 Dose: 1 canister Bisacodyl (Dulcolax) 10 mg RECTAL .ONCE PRN PRN Reason: Constipation Butorphanol Tartrate (Stadol) 1 mg IVPUSH Q1H PRN PRN Reason: Pain Last Admin: 05/29/17 01:14 Dose: 1 mg Carboprost Tromethamine (Hemabate Ds) 250 mcg IM ASDIRECTED PRN PRN Reason: Post Hemorrhage Docusate Sodium (Colace) 100 mg PO BID [facility] Last Admin: 05/29/17 21:01 Dose: 100 mg Emollient Ointment (Lansinoh Hpa) 0 gm TOP ASDIRECTED PRN PRN Reason: Sore Nipples Last Admin: 05/29/17 06:38 Dose: 1 tube Lactated Ringer's (Ringers, Lactated) 1,000 mls @ 150 mls/hr IV ASDIRECTED [facility] Last Admin: 05/29/17 00:35 Dose: 150 mls/hr Oxytocin/Sodium Chloride (Oxytocin 30 Unit/500 Ml-Ns) 30 unit in 500 mls @ 500 mls/hr IV TITRATE [facility] Last Admin: 05/29/17 02:12 Dose: 999 mls/hr Oxytocin/Sodium Chloride (Oxytocin 30 Unit/500 Ml-Ns) 30 unit in 500 mls @ 2 mls/hr IV TITRATE [facility]; 2 MUNITS/MIN PRN Reason: Protocol Last Titration: 05/28/17 23:33 Dose: 4 munits/min, 4 mls/hr Ampicillin Sodium/Sulbactam (Sodium 3 gm/ Sodium Chloride) 100 mls @ 200 mls/ hr IV Q6H [facility] Last Admin: 05/30/17 05:06 Dose: 200 mls/hr Ibuprofen (Motrin) 400 mg PO Q4H PRN PRN Reason: Pain Ibuprofen (Motrin) 800 mg PO Q6H PRN PRN Reason: Pain Last Admin: 05/30/17 04:25 Dose: 800 mg Lidocaine HCl (Xylocaine 1%) 50 ml INJECT .ONCE PRN PRN Reason: Laceration repair Last Admin: 05/29/17 01:00 Dose: 50 ml Methylergonovine Maleate (Methergine) 0.2 mg IM ASDIRECTED PRN PRN Reason: Post Hemorrhage Last Admin: 05/29/17 02:14 Dose: 0.2 mg Misoprostol (Cytotec) 200 mcg PO .ONCE PRN PRN Reason: Post Hemorrhage Misoprostol (Cytotec) 25 mcg VAG .ONCE AIDAN Misoprostol (Cytotec) 25 mcg VAG Q6H PRN PRN Reason: Cervical Ripening Oxycodone HCl (Oxycodone) 5 mg PO Q2H PRN PRN Reason: Pain Last Admin: 05/29/17 16:15 Dose: 5 mg Sodium Chloride (Saline Flush) 10 ml FLUSH ASDIRECTED PRN PRN Reason: Keep Vein Open Sodium Chloride (Saline Flush) 2.5 ml FLUSH ASDIRECTED PRN PRN Reason: Keep Vein Open Sterile Water (Sterile Water For Irrigation) 1,000 ml IRR ASDIRECTED PRN PRN Reason: delivery Last Admin: 05/29/17 01:00 Dose: 1,000 ml Terbutaline Sulfate (Brethine) 0.25 mg SUBCUT ASDIRECTED PRN PRN Reason: Tacysystole Witch Jessica (Tucks) 1 pad TOP ASDIRECTED PRN PRN Reason: comfort care Last Admin: 05/29/17 06:37 Dose: 1 tub Discontinued Medications Docusate Sodium (Colace) 100 mg PO BID PRN PRN Reason: Constipation Fentanyl (Sublimaze) Confirm Administered Dose 100 mcg .ROUTE .STK-MED ONE Stop: 05/29/17 02:51 Fentanyl (Sublimaze) Confirm Administered Dose 100 mcg .ROUTE .STK-MED ONE Stop: 05/29/17 04:24 Ampicillin Sodium/Sulbactam (Sodium 3 gm/ Sodium Chloride) 100 mls @ 200 mls/ hr IV Q6H [facility] Last Admin: 05/29/17 03:06 Dose: 200 mls/hr Sodium Chloride (Normal Saline) Confirm Administered Dose 20 mls @ as directed .ROUTE .STK-MED ONE Stop: 05/29/17 02:51 Ampicillin Sodium/Sulbactam (Sodium 3 gm/ Sodium Chloride) 100 mls @ 200 mls/ hr IV Q6H [facility] Methylergonovine Maleate (Methergine) Confirm Administered Dose 0.2 mg .ROUTE .STK-MED ONE Stop: 05/29/17 03:37 Midazolam HCl (Versed 1 Mg/Ml) Confirm Administered Dose 2 mg .ROUTE .STK-MED ONE Stop: 05/29/17 02:52 Nalbuphine HCl (Nubain) 10 mg IVPUSH Q1H PRN PRN Reason: Pain (severe 7-10) Promethazine HCl (Phenergan) Confirm Administered Dose 25 mg .ROUTE .STK-MED ONE Stop: 05/29/17 01:24 Last Admin: 05/29/17 01:25 Dose: 25 mg Propofol (Diprivan 20 Ml) Confirm Administered Dose 200 mg .ROUTE .STK-MED ONE Stop: 05/29/17 02:51 Succinylcholine Chloride (Succinylcholine In Ns Pf) Confirm Administered Dose 200 mg .ROUTE .STK-MED ONE Stop: 05/29/17 02:51 - Interaction Infant Disposition, : [place] in Room with Family Infant Interaction: Holding Infant Feeding: Breastfed ; Nursed Well Support Person: - Recovery Exam Fundal Tone: Firm Fundal Level: At Umbilicus Fundal Placement: Midline Lochia Amount: Small Lochia Color: Rubra/Red Perineum Description: Other (see below) Other Perinuem Description: 4th degree laceration Episiotomy/Laceration: None Bladder Status: Voiding Urinary Elimination: Voided - Exam General: Alert, Oriented Neck: Supple Lungs: Clear to Auscultation, Normal Respiratory Effort Cardiovascular: Regular Rate, Regular Rhythm GI/Abdominal Exam: Normal Bowel Sounds, Soft, Non-Tender, No Distention Extremities: Normal Inspection, Pedal Edema (trace) Skin: Warm, Dry, Intact - Problem List & Annotations (1) Fourth degree perineal laceration SNOMED Code(s): 350259697 Code(s): O70.3 - FOURTH DEGREE PERINEAL LACERATION DURING DELIVERY Status: Acute Current Visit: Yes (2) Vaginal delivery SNOMED Code(s): 992306416 Code(s): O80 - ENCOUNTER FOR FULL-TERM UNCOMPLICATED DELIVERY Status: Acute Current Visit: Yes - Problem List Review Problem List Initiated/Reviewed/Updated: Yes - Assessment Assessment:: PPD#2 after precipitous labor and delivery with 4th degree lacerations. Pain is controlled with oral pain medications, minimal lochia. Breast feeding well. Patient will continue stool softener. Discharge home today. - Plan Plan:: Discharge home today. Nothing in the vagina for 6 weeks. Continue PNV while breast feeding. Can use OTC ibuprofen/tylenol as needed for pain. Instructed patient to call if she develops fever greater than 101 or bleeding through a large pad an hour. F/U with [facility] in 6 weeks. <Nola Moy - Last Filed: 05/30/17 08:56> - Patient Data Vital Signs - Most Recent: Last Vital Signs Temp 36.6 C 05/30/17 06:00 Pulse 88 05/30/17 06:00 Resp 17 05/30/17 06:00 BP 99/63 05/30/17 06:00 Pulse Ox 98 05/30/17 06:00 I&O - Last 24 Hours: Intake & Output 05/29/17 05/30/17 05/30/17 22:59 06:59 14:59 Intake Total 100 Balance 100 Lab Results - Last 24 Hours: Laboratory Results - last 24 hr 05/30/17 Range/Units 05:31 Hgb 8.7 L (12.0-16.0) g/dL Hct 26.2 L (36.0-46.0) % Med Orders - Current: Current Medications Acetaminophen (Tylenol Extra Strength) 500 mg PO Q4H PRN PRN Reason: Pain Last Admin: 05/29/17 16:14 Dose: 500 mg Acetaminophen (Tylenol Extra Strength) 1,000 mg PO Q4H PRN PRN Reason: Pain Benzocaine/Menthol (Dermoplast Pain Relief 20%-0.5% [place]) 78 gm TOP ASDIRECTED PRN PRN Reason: Perineal Comfort Measure Last Admin: 05/29/17 06:37 Dose: 1 canister Bisacodyl (Dulcolax) 10 mg RECTAL .ONCE PRN PRN Reason: Constipation Butorphanol Tartrate (Stadol) 1 mg IVPUSH Q1H PRN PRN Reason: Pain Last Admin: 05/29/17 01:14 Dose: 1 mg Carboprost Tromethamine (Hemabate Ds) 250 mcg IM ASDIRECTED PRN PRN Reason: Post Hemorrhage Docusate Sodium (Colace) 100 mg PO BID [facility] Last Admin: 05/29/17 21:01 Dose: 100 mg Emollient Ointment (Lansinoh Hpa) 0 gm TOP ASDIRECTED PRN PRN Reason: Sore Nipples Last Admin: 05/29/17 06:38 Dose: 1 tube Lactated Ringer's (Ringers, Lactated) 1,000 mls @ 150 mls/hr IV ASDIRECTED [facility] Last Admin: 05/29/17 00:35 Dose: 150 mls/hr Oxytocin/Sodium Chloride (Oxytocin 30 Unit/500 Ml-Ns) 30 unit in 500 mls @ 500 mls/hr IV TITRATE [facility] Last Admin: 05/29/17 02:12 Dose: 999 mls/hr Oxytocin/Sodium Chloride (Oxytocin 30 Unit/500 Ml-Ns) 30 unit in 500 mls @ 2 mls/hr IV TITRATE [facility]; 2 MUNITS/MIN PRN Reason: Protocol Last Titration: 05/28/17 23:33 Dose: 4 munits/min, 4 mls/hr Ampicillin Sodium/Sulbactam (Sodium 3 gm/ Sodium Chloride) 100 mls @ 200 mls/ hr IV Q6H [facility] Last Admin: 05/30/17 05:06 Dose: 200 mls/hr Ibuprofen (Motrin) 400 mg PO Q4H PRN PRN Reason: Pain Ibuprofen (Motrin) 800 mg PO Q6H PRN PRN Reason: Pain Last Admin: 05/30/17 04:25 Dose: 800 mg Lidocaine HCl (Xylocaine 1%) 50 ml INJECT .ONCE PRN PRN Reason: Laceration repair Last Admin: 05/29/17 01:00 Dose: 50 ml Methylergonovine Maleate (Methergine) 0.2 mg IM ASDIRECTED PRN PRN Reason: Post Hemorrhage Last Admin: 05/29/17 02:14 Dose: 0.2 mg Misoprostol (Cytotec) 200 mcg PO .ONCE PRN PRN Reason: Post Hemorrhage Misoprostol (Cytotec) 25 mcg VAG .ONCE [facility] Misoprostol (Cytotec) 25 mcg VAG Q6H PRN PRN Reason: Cervical Ripening Oxycodone HCl (Oxycodone) 5 mg PO Q2H PRN PRN Reason: Pain Last Admin: 05/29/17 16:15 Dose: 5 mg Sodium Chloride (Saline Flush) 10 ml FLUSH ASDIRECTED PRN PRN Reason: Keep Vein Open Sodium Chloride (Saline Flush) 2.5 ml FLUSH ASDIRECTED PRN PRN Reason: Keep Vein Open Sterile Water (Sterile Water For Irrigation) 1,000 ml IRR ASDIRECTED PRN PRN Reason: delivery Last Admin: 05/29/17 01:00 Dose: 1,000 ml Terbutaline Sulfate (Brethine) 0.25 mg SUBCUT ASDIRECTED PRN PRN Reason: Tacysystole Witch Jessica (Tucks) 1 pad TOP ASDIRECTED PRN PRN Reason: comfort care Last Admin: 05/29/17 06:37 Dose: 1 tub Discontinued Medications Docusate Sodium (Colace) 100 mg PO BID PRN PRN Reason: Constipation Fentanyl (Sublimaze) Confirm Administered Dose 100 mcg .ROUTE .STK-MED ONE Stop: 05/29/17 02:51 Fentanyl (Sublimaze) Confirm Administered Dose 100 mcg .ROUTE .STK-MED ONE Stop: 05/29/17 04:24 Ampicillin Sodium/Sulbactam (Sodium 3 gm/ Sodium Chloride) 100 mls @ 200 mls/ hr IV Q6H [facility] Last Admin: 05/29/17 03:06 Dose: 200 mls/hr Sodium Chloride (Normal Saline) Confirm Administered Dose 20 mls @ as directed .ROUTE .STK-MED ONE Stop: 05/29/17 02:51 Ampicillin Sodium/Sulbactam (Sodium 3 gm/ Sodium Chloride) 100 mls @ 200 mls/ hr IV Q6H [facility] Methylergonovine Maleate (Methergine) Confirm Administered Dose 0.2 mg .ROUTE .STK-MED ONE Stop: 05/29/17 03:37 Midazolam HCl (Versed 1 Mg/Ml) Confirm Administered Dose 2 mg .ROUTE .STK-MED ONE Stop: 05/29/17 02:52 Nalbuphine HCl (Nubain) 10 mg IVPUSH Q1H PRN PRN Reason: Pain (severe 7-10) Promethazine HCl (Phenergan) Confirm Administered Dose 25 mg .ROUTE .STK-MED ONE Stop: 05/29/17 01:24 Last Admin: 05/29/17 01:25 Dose: 25 mg Propofol (Diprivan 20 Ml) Confirm Administered Dose 200 mg .ROUTE .STK-MED ONE Stop: 05/29/17 02:51 Succinylcholine Chloride (Succinylcholine In Ns Pf) Confirm Administered Dose 200 mg .ROUTE .STK-MED ONE Stop: 05/29/17 02:51 - Problem List & Annotations (1) Fourth degree perineal laceration SNOMED Code(s): 007813168 Code(s): O70.3 - FOURTH DEGREE PERINEAL LACERATION DURING DELIVERY Status: Acute Current Visit: Yes (2) Vaginal delivery SNOMED Code(s): 366353943 Code(s): O80 - ENCOUNTER FOR FULL-TERM UNCOMPLICATED DELIVERY Status: Acute Current Visit: Yes - Problem List Review Problem List Initiated/Reviewed/Updated: Yes - Plan Plan:: Agree with above, will continue stool softeners for at least 2 weeks.
[2017-05-30] MEDS: oxyCODONE 5 MG Tab PO PRN (08:58)
[2017-05-30] MEDS: Docusate Sodium 100 MG Cap PO SCH (08:59)
== END 2017-05-30 13:45 | disposition home or self-care (01) | DRG 775 ==
LOC: MW.OBCHECK 21:58 → MW.OB 21:59 → MW.OBCHECK 22:06 → OBSVTOIN 05-29 01:00 → MW.OB 05-29 04:26
PROVIDERS: ADMIT Obstetrics & Gynecology; ATTEND Obstetrics & Gynecology
PROC: 10E0XZZ Delivery of Products of Conception, External Approach (ICD-10-PCS; principal; 2017-05-29)
PROC: 0DQP0ZZ Repair Rectum, Open Approach (ICD-10-PCS; 2017-05-29)
PROC: 3E0P3VZ Introduction of Hormone into Female Reproductive, Percutaneous Approach (ICD-10-PCS; 2017-05-29)
DX: O70.3 Fourth degree perineal laceration during delivery (principal); Z37.0 Single live birth; O09.813 Supervision of pregnancy resulting from assisted reproductive technology, third trimester; Z3A.39 39 weeks gestation of pregnancy
CPT/HCPCS: 00940; 36415; 59025; 59409; 84112; 85014; 85018; 85027; 86850; 86900; 86901; A9270-GY; J0295; J0595; J2210; J2250; J2550; J2590; J2704; J3010; J7030; J7120

== ENCOUNTER 2018-09-27 12:27 | Inpatient (IN) | payer OTHER ==
--- NOTE | 2018-09-27 12:39 | EDM.PDOC ---
ED HPI GENERAL MEDICAL PROBLEM - General Chief Complaint: [employer] Problem Stated Complaint: 19WKS PG BACK PAIN AND PRESSURE Time Seen by Provider: 09/27/18 12:33 Source of Information: Reports: Patient - History of Present Illness INITIAL COMMENTS - FREE TEXT/NARRATIVE: HISTORY AND PHYSICAL: History of present illness: [Patient at 19 weeks 5 days with twin gestation under the care of , presents with low back pain and sensation of "something protruding into the vagina ""] Review of systems: As per history of present illness and below otherwise all systems reviewed and negative. Past medical history: As per history of present illness and as reviewed below otherwise noncontributory. Surgical history: As per history of present illness and as reviewed below otherwise noncontributory. Social history: No reported history of drug or alcohol abuse. Family history: As per history of present illness and as reviewed below otherwise noncontributory. Physical exam: HEENT: Atraumatic, normocephalic, pupils reactive, negative for conjunctival pallor or scleral icterus, mucous membranes moist, throat clear, neck supple, nontender, trachea midline. Lungs: Clear to auscultation, breath sounds equal bilaterally, chest nontender. Heart: S1S2, regular, negative for clicks, rubs, or JVD. Abdomen: Soft, nondistended, nontender. Negative for masses or hepatosplenomegaly. Negative for costovertebral tenderness. Pelvis: Stable nontender. Genitourinary: Deferred. Rectal: Deferred. Extremities: Atraumatic, negative for cords or calf pain. Neurovascular unremarkable. Neuro: Awake, alert, oriented. Cranial nerves II through XII unremarkable. Cerebellum unremarkable. Motor and sensory unremarkable throughout. Exam nonfocal. Diagnostics: [CBC CMP UA hCG ABO type B ultrasound] Therapeutics: [None Dr. Ulloa phone consult will admit to labor and delivery for further treatment and evaluation Impression: Threatened [Twin gestation ] 19 weeks 5 days Baby a heart rate 76 present in the cervix Baby B heart rate 146 transverse ABO type a positive Definitive disposition and diagnosis as appropriate pending reevaluation and review of above. Lower Back Pain Score (Numeric/FACES): 9 - Related Data Allergies Allergy/AdvReac Type Severity Reaction Status Date / Time [place] Allergy Hives Verified 05/28/17 22:23 Home Meds: Home Meds Ferrous Sulfate [Iron] 1 tab PO DAILY 09/27/18 [History] Folic Acid 1 tab PO DAILY 09/27/18 [History] Pnv No.95/Ferrous Fum/Folic AC [ [place]] 1 tab PO DAILY 09/27/18 [ History] Past Medical History HEENT History: Reports: Impaired Vision Respiratory History: Reports: Other (See Below) Other Respiratory History: Exposure to TB in 1999. Gastrointestinal History: Reports: Other (See Below) Other Gastrointestinal History: Gastric lesion Genitourinary History: Reports: UTI, Recurrent [employer] History: Reports: , Other (See Below) Other [employer] History: Infertility, IVF conceptions, laparoscopy for infection in tubes. Painful intercoarse. - Infectious Disease History Infectious Disease History: Reports: Chicken Pox - Past Surgical History HEENT Surgical History: Reports: None Respiratory Surgical History: Reports: None GI Surgical History: Reports: Colonoscopy, EGD Female Surgical History: Reports: Other (See Below) Other Female Surgeries/Procedures: Bilateral salpingectomy Social & Family History - Family History Cardiac: Reports: High Cholesterol, Hypertension, [place] OBGYN: Reports: Psychiatric: Reports: Anxiety, Depression, Emotional Problems - Caffeine Use Caffeine Use: Reports: None ED ROS GENERAL - Review of Systems Review Of Systems: See Below ED EXAM, GENERAL - Physical Exam Exam: See Below Course - Vital Signs Last Recorded V/S: Last Vital Signs Temp 97.2 F 09/27/18 12:33 Pulse 119 H 09/27/18 12:33 Resp 18 09/27/18 12:33 BP 127/95 H 09/27/18 12:33 Pulse Ox 96 09/27/18 12:33 - Orders/Labs/Meds Orders: Active Orders 24 hr Category Date Time Status OB Ltd 1 or More Fetus [US] Stat Exams 09/27/18 12:37 Ordered COMPREHENSIVE METABOLIC PN,CMP [CHEM] Stat Lab 09/27/18 12:50 Received HCG QUANTITATIVE [CHEM] Stat Lab 09/27/18 12:50 Received UA RFX RONALD AND CULT IF INDIC [URIN] Stat Lab 09/27/18 13:10 Received Labs: Laboratory Tests 09/27/18 09/27/18 Range/Units 12:50 12:50 WBC 15.03 H (4.0-11.0) K/uL RBC 4.00 L (4.30-5.90) M/uL Hgb 12.7 (12.0-16.0) g/dL Hct 37.4 (36.0-46.0) % MCV 93.5 (80.0-98.0) fL MCH 31.8 (27.0-32.0) pg MCHC 34.0 (31.0-37.0) g/dL RDW Std Deviation 51.8 (28.0-62.0) fl RDW Coeff of Mike 15 (11.0-15.0) % Plt Count 241 (150-400) K/uL MPV 11.30 (7.40-12.00) fL Neut % (Auto) 68.3 (48.0-80.0) % Lymph % (Auto) 24.2 (16.0-40.0) % [place] % (Auto) 6.5 (0.0-15.0) % Eos % (Auto) 0.8 (0.0-7.0) % Baso % (Auto) 0.2 (0.0-1.5) % Neut # (Auto) 10.3 H (1.4-5.7) K/uL Lymph # (Auto) 3.6 H (0.6-2.4) K/uL [place] # (Auto) 1.0 H (0.0-0.8) K/uL Eos # (Auto) 0.1 (0.0-0.7) K/uL Baso # (Auto) 0.0 (0.0-0.1) K/uL Nucleated RBC % 0.0 /100WBC Nucleated RBCs # 0 K/uL Blood Type A POSITIVE Departure - Departure Time of Disposition: 13:45 Disposition: Refer to Observation Condition: Fair Clinical Impression: Threatened , Incomplete - Discharge Information Referrals: PCP,None [Primary Care Provider] - Forms: ED Department Discharge - My Orders Last 24 Hours: My Active Orders 09/27/18 12:37 OB Ltd 1 or More Fetus [US] Stat 09/27/18 12:50 COMPREHENSIVE METABOLIC PN,CMP [CHEM] Stat HCG QUANTITATIVE [CHEM] Stat 09/27/18 13:10 UA RFX RONALD AND CULT IF INDIC [URIN] Stat - Assessment/Plan Last 24 Hours: My Active Orders 09/27/18 12:37 OB Ltd 1 or More Fetus [US] Stat 09/27/18 12:50 COMPREHENSIVE METABOLIC PN,CMP [CHEM] Stat HCG QUANTITATIVE [CHEM] Stat 09/27/18 13:10 UA RFX RONALD AND CULT IF INDIC [URIN] Stat
[2018-09-27 13:50] LABS: CHLORIDE,CL 104 mmol/L (98-107); SODIUM,NA 136 mmol/L (136-145)
--- NOTE | 2018-09-27 14:07 | US ---
EXAMINATION: Twin obstetric ultrasound HISTORY: Pain COMPARISON: None TECHNIQUE: Grayscale, M-mode, color Doppler imaging obtained. FINDINGS: There is a twin noted. Fetus a is noted located within the endocervical canal and partially within the vagina. heart rate of twin A is 76 bpm. Fetus a is also within a breech position. The largest pocket of amniotic fluid is 3.1 cm. Fetus B is located within the uterus. In a transverse lie. The heart rate is 145 bpm. Largest fluid pocket is 4.7 cm. There appears to be a single posterior placenta with a membrane separation. IMPRESSION: 1. Twin with fetus A located partially within the cervix and vagina. No definite evidence of ruptured membrane. Also bradycardia is noted. 2. Fetus B is intrauterine with a heart rate of 145 bpm.
[2018-09-27] MEDS ORDERED: Ampicillin 2 GM in Sodium Chloride 0.9% 100 ML IV SCH (17:30)
[2018-09-27] MEDS ORDERED: Azithromycin 1,000 MG in Sodium Chloride 0.9% 500 ML IV ONE (18:00)
== END 2018-09-27 18:22 | DRG 833 ==
LOC: MW.ED 12:27 → MW.OB 14:33
PROVIDERS: ADMIT Obstetrics & Gynecology; ATTEND Obstetrics & Gynecology
DX: O20.0 Threatened abortion (principal); Z3A.19 19 weeks gestation of pregnancy; O30.002 Twin pregnancy, unspecified number of placenta and unspecified number of amniotic sacs, second trimester; Z91.018 Allergy to other foods; Z87.440 Personal history of urinary (tract) infections
CPT/HCPCS: 36415; 59025; 76815; 76815-26; 80053; 81003; 84702; 85025; 86900; 86901; 99284-25; J0290; J7030

== ENCOUNTER 2019-05-21 06:32 | Day surgery (SDC) | payer OTHER ==
[~2019-05-21 06:32] MED LIST: ceFAZolin 2 GM in Premix Bag 1 BAG IV ONE
[2019-05-21] MEDS ORDERED: fentaNYL 250 MCG/5 ML SDV ONE (07:01)
[2019-05-21] MEDS ORDERED: Propofol 200 MG/20 ML SDV ONE (07:01)
[2019-05-21] MEDS ORDERED: Midazolam 1 MG/ML 2 ML SDV ONE (07:01)
[2019-05-21] MEDS: Lactated Ringers 1,000 ML IV SCH ×2 (07:11→16:36)
[2019-05-21] MEDS ORDERED: Ketorolac 30 MG/ML SDV ONE (07:20)
[2019-05-21] MEDS ORDERED: Rocuronium 100 MG/10 ML Syringe ONE (07:20)
[2019-05-21] MEDS ORDERED: Dexamethasone 4 MG/ML 5 ML MDV ONE (07:20)
[2019-05-21] MEDS ORDERED: Lidocaine 2% 5 ML SDV ONE (07:20)
[2019-05-21] MEDS ORDERED: Ondansetron 4 MG/2 ML SDV ONE (07:20)
[2019-05-21] MEDS ORDERED: Glycopyrrolate 0.2 MG/ML SDV ONE (07:20)
[2019-05-21] MEDS ORDERED: Sugammadex Sodium 200 MG/2 ML VIAL ONE (07:23)
--- NOTE | 2019-05-21 07:34 | PCM.PREANE ---
Preanesthetic Assessment - Anesthesia/Transfusion/Family Hx Anesthesia History: Prior Anesthesia Without Reaction Family History of Anesthesia Reaction: No Transfusion History: No Prior Transfusion(s) Intubation History: Unknown - Review of Systems General: No Symptoms Pulmonary: No Symptoms Cardiovascular: No Symptoms Gastrointestinal: No Symptoms Neurological: No Symptoms Other: Reports: None - Physical Assessment NPO Status Date: 05/20/19 NPO Status Time: 20:00 Vital Signs: Last Vital Signs Temp 97.9 F 05/21/19 06:50 Pulse 89 05/21/19 06:50 Resp 15 05/21/19 06:50 BP 114/75 05/21/19 06:50 Pulse Ox 98 05/21/19 06:50 Height: 5 ft 2.5 in Weight: 72.575 kg ASA Class: 1 Mental Status: Alert & Oriented x3 Airway Class: Mallampati = 2 Dentition: Reports: Normal Dentition Thyro-Mental Finger Breadths: 3 (wide/short) Mouth Opening Finger Breadths: 3 ROM/Head Extension: Full Lungs: Clear to Auscultation, Normal Respiratory Effort Cardiovascular: Regular Rate, Regular Rhythm - Lab Values: Laboratory Last Values WBC 7.37 K/uL (4.0-11.0) 05/21/19 07:11 RBC 4.19 M/uL (4.30-5.90) L 05/21/19 07:11 Hgb 13.0 g/dL (12.0-16.0) 05/21/19 07:11 Hct 36.8 % (36.0-46.0) 05/21/19 07:11 MCV 87.8 fL (80.0-98.0) 05/21/19 07:11 MCH 31.0 pg (27.0-32.0) 05/21/19 07:11 MCHC 35.3 g/dL (31.0-37.0) 05/21/19 07:11 RDW Std Deviation 42.5 fl (28.0-62.0) 05/21/19 07:11 RDW Coeff of Mike 14 % (11.0-15.0) 05/21/19 07:11 Plt Count 246 K/uL (150-400) 05/21/19 07:11 MPV 11.20 fL (7.40-12.00) 05/21/19 07:11 - Allergies Allergies/Adverse Reactions: Allergies Allergy/AdvReac Type Severity Reaction Status Date / Time [place] Allergy Anaphylactic Verified 05/14/19 09:07 Shock - Anesthesia Plan Free Text/Narrative:: Hyst for ABD PAIN, denies any previous anesthesia complications. Patient consented to blood/blood products. Mother at the bedside. - Acknowledgements Anesthesia Type Planned: General Anesthesia Pt an Appropriate Candidate for the Planned Anesthesia: Yes Alternatives and Risks of Anesthesia Discussed w Pt/Guardian: Yes Pt/Guardian Understands and Agrees with Anesthesia Plan: Yes PreAnesthesia Questionnaire - Past Health History Medical/Surgical History: Denies Medical/Surgical History HEENT History: Reports: Impaired Vision Other HEENT History: wears glasses Cardiovascular History: Reports: None Respiratory History: Reports: None Gastrointestinal History: Reports: Other (See Below) Other Gastrointestinal History: Gastric lesion Genitourinary History: Reports: UTI, Recurrent 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 Painful intercoarse. Musculoskeletal History: Reports: None Neurological History: Reports: None Psychiatric History: Reports: None Endocrine/Metabolic History: Reports: None Hematologic History: Reports: None Immunologic History: Reports: None Oncologic (Cancer) History: Reports: None Dermatologic History: Reports: None - Infectious Disease History Infectious Disease History: Reports: Chicken Pox - Past Surgical History Head Surgeries/Procedures: Reports: None HEENT Surgical History: Reports: None Cardiovascular Surgical History: Reports: None Respiratory Surgical History: Reports: None GI Surgical History: Reports: Colonoscopy, EGD Female Surgical History: Reports: Other (See Below) Other Female Surgeries/Procedures: laparoscopic Bilateral salpingectomy Endocrine Surgical History: Reports: None Neurological Surgical History: Reports: None Musculoskeletal Surgical History: Reports: None Oncologic Surgical History: Reports: None Dermatological Surgical History: Reports: None - SUBSTANCE USE Smoking Status *Q: Former Smoker Tobacco Use Within Last Twelve Months: No - HOME MEDS Home Medications: Home Meds Acetaminophen [Tylenol] 2 tab PO ASDIRECTED PRN 05/14/19 [History] Ibuprofen [Motrin] 1 - 2 tab PO ASDIRECTED PRN 05/14/19 [History] - CURRENT (IN HOUSE) MEDS Current Meds: Current Medications Lactated Ringer's (Ringers, Lactated) 1,000 mls @ 125 mls/hr IV ASDIRECTED AIDAN Discontinued Medications Dexamethasone (Dexamethasone) Confirm Administered Dose 20 mg .ROUTE .STK-MED ONE Stop: 05/21/19 07:21 Fentanyl (Sublimaze) Confirm Administered Dose 250 mcg .ROUTE .STK-MED ONE Stop: 05/21/19 07:02 Glycopyrrolate (Robinul) Confirm Administered Dose 0.2 mg .ROUTE .STK-MED ONE Stop: 05/21/19 07:21 Cefazolin Sodium/Dextrose 2 gm (/ Premix) 50 mls @ 100 mls/hr IV ONETIME ONE Stop: 05/21/19 06:45 Ketorolac Tromethamine (Toradol) Confirm Administered Dose 30 mg .ROUTE .STK- MED ONE Stop: 05/21/19 07:21 Lidocaine (Xylocaine-Mpf 2%) Confirm Administered Dose 5 ml .ROUTE .STK-MED ONE Stop: 05/21/19 07:21 Midazolam HCl (Versed 1 Mg/Ml) Confirm Administered Dose 2 mg .ROUTE .STK-MED ONE Stop: 05/21/19 07:02 Ondansetron HCl (Zofran) Confirm Administered Dose 4 mg .ROUTE .STK-MED ONE Stop: 05/21/19 07:21 Propofol (Diprivan 20 Ml) Confirm Administered Dose 200 mg .ROUTE .STK-MED ONE Stop: 05/21/19 07:02 Rocuronium [place] (Zemuron) Confirm Administered Dose 100 mg .ROUTE .STK-MED ONE Stop: 05/21/19 07:21 Sugammadex Sodium (Bridion) Confirm Administered Dose 200 mg .ROUTE .STK-MED ONE Stop: 05/21/19 07:24
[2019-05-21 07:45] LABS: BLOOD UREA NITROGEN,BUN 11 mg/dL (7.0-18.0); CARBON DIOXIDE,CO2 22.9 mmol/L (21.0-32.0); CHLORIDE,CL 105 mmol/L (98-107); GLUCOSE RANDOM 96 mg/dL (74-106); POTASSIUM,K 4.1 mmol/L (3.5-5.1); SODIUM,NA 137 mmol/L (136-145)
[2019-05-21] MEDS ORDERED: ceFAZolin 1 GM Vial ONE (07:45)
[2019-05-21] MEDS ORDERED: Sodium Chloride 0.9% 20 ML ONE (07:45)
[2019-05-21] MEDS ORDERED: Bupivacaine 0.25% 10 ML SDV ONE (07:46)
[2019-05-21] MEDS ORDERED: Methylene Blue 50 MG/10 ML Ampule ONE ×2 (07:46→08:31)
[2019-05-21] MEDS ORDERED: fentaNYL 100 MCG/2 ML SDV IVPUSH PRN (08:21)
[2019-05-21] MEDS ORDERED: Ondansetron 4 MG/2 ML SDV IVPUSH PRN ×2 (08:21→10:10)
[2019-05-21] MEDS ORDERED: Fluorescein 5 ML Vial ONE (08:23)
[2019-05-21] MEDS ORDERED: HYDROmorphone 2 MG/ML Syringe ONE (08:45)
[2019-05-21] MEDS ORDERED: Furosemide 40 MG/4 ML VIAL ONE (09:18)
[2019-05-21] MEDS ORDERED: Octyl 2-Cyanoacrylate 1 Tube ONE (09:28)
[2019-05-21] MEDS ORDERED: Morphine 4 MG/ML Syringe IVPUSH PRN (10:10)
[2019-05-21] MEDS ORDERED: Ketorolac 30 MG/ML SDV IVPUSH ONE (10:10)
[2019-05-21] MEDS ORDERED: Promethazine 25 MG/ML SDV IM PRN (10:10)
[2019-05-21] MEDS ORDERED: Acetaminophen/oxyCODONE 325-5 MG Tab PO PRN (10:10)
--- NOTE | 2019-05-21 10:10 | PCM.OPNOTE ---
- General Post-Op/Procedure Note Date of Surgery/Procedure: 05/21/19 Operative Procedure(s): LAVH/Cystoscopy Findings: No endometriosis. Bilateral ovaries appear normal, with surrounding filmy adhesion. There is an inflammatory cyst in the posterior cul de sac. On cystoscopy there was no evidence of trauma to the bladder mucosa and copious flow of bright green urine from bilateral ureteral orifices after iv fluoroscein. Pre Op Diagnosis: pelvic pain, pelvic adhesions. Post-Op Diagnosis: Same Anesthesia Technique: General ET Tube Primary Surgeon: Nola Moy Secondary Surgeon: Adal Hernandez Anesthesia Provider: Alphonso Hatch Wildlife Officer: Jasper Calhoun Pathology: uterus Fluid Replacement, Intraop: 800 Output, Urine Amount: 300 EBL in mLs: 200 Complications: None Known Condition: Good
--- NOTE | 2019-05-21 11:53 | OR ---
SURGEON: Nola Moy M.D. DATE OF PROCEDURE: 05/21/2019 PREOPERATIVE DIAGNOSIS: Pelvic pain, pelvic adhesions, dysmenorrhea. POSTOPERATIVE DIAGNOSIS: Pelvic pain, pelvic adhesions, dysmenorrhea. PROCEDURES PERFORMED: Laparoscopically-assisted vaginal hysterectomy with cystoscopy. PRIMARY SURGEON: Nola Moy M.D. SHIRT MAKER: Adal Hernandez. ANESTHESIA: General endotracheal. FLUIDS: 800 mL crystalloid. EBL: 200 mL. URINE OUTPUT: 300 mL. FINDINGS: The ovaries appeared normal, however, with filmy adhesions surrounding them. There was an inflammatory cyst in the posterior cul-de-sac. There was no evidence of any endometriosis. Upon cystoscopy, there was no evidence of any trauma to the bladder mucosa. After IV fluorescein and Lasix had been given, there was copious flow of bright green urine bilaterally. COMPLICATIONS: None known. PATHOLOGY: Uterus. DISPOSITION: Stable to recovery. BRIEF HISTORY: This is a 34-year-old female. She presents with a long history of pelvic pain and infertility. In the past, she has had a bilateral salpingectomy due to bilateral hydrosalpinges followed by assisted reproductive care, which resulted in a mid trimester loss. She has extremely painful periods every cycle. We have tried multiple modalities to help her with her pain and this is debilitating on a monthly basis. Therefore, she has chosen to pursue no further attempts at conception. She desires to proceed with hysterectomy, and this was after a time period of waiting and consideration over the past 6 months. She returned again requesting hysterectomy with risks discussed including bleeding, infection, injury to bowel, bladder, blood vessels or other organs, risk of thromboembolic event, and risk of anesthesia. She also understands the risk of regret related to loss of ability to conceive. Understanding all these risks, she does desire to proceed. DESCRIPTION OF PROCEDURE: With the patient in dorsal lithotomy position and under adequate general endotracheal anesthesia, the abdomen, perineum, vagina were prepped and draped in the usual fashion for abdominal surgery. SCDs were in place. Kirk catheter had been backfilled with 30 mL of dilute indigo carmine and the appropriate time- out was held. A bimanual examination revealed the uterus to be mobile and 8- week size. A speculum was placed in the vagina. The ZDeposco uterine manipulator was placed in the uterus and the speculum was removed. Canvas Baster's gloves were changed. Attention was then turned abdominally, where 3 mL of 0.25% Marcaine were injected inferior to the umbilicus and a 5 mm incision was made. The anterior abdominal wall was elevated. Veress needle was inserted and CO2 opening pressure was 1 mmHg. CO2 was insufflated to develop an adequate pneumoperitoneum of 13 mmHg. The patient was placed in Trendelenburg position. The uterus was elevated. Two additional port sites were placed 2 cm medial and cephalad from the anterior superior iliac spine on the right and the left under direct visualization without any difficulty and the pelvis was carefully inspected. There was no endometriosis. Therefore, the decision was made to allow her to keep her ovaries, and therefore, the ureters were identified. They were deep within the pelvis. The upper broad ligament and round ligament were doubly cauterized and cut entering, the anterior and posterior leaf of the broad ligament were then and dissected skeletonizing the uterine vessels which were then doubly cauterized and cut. This was performed on the right and the left. The anterior peritoneum was incised using electrocautery. This being complete, the abdomen was desufflated, and attention was then turned vaginally where the clamp on the Kirk catheter was released. A weighted speculum was placed posteriorly. Vaginal sidewall retractors were placed and the cervix was circumscribed using electrocautery. The anterior and posterior cul-de-sac were entered sharply without any difficulty. The Carleen-Auvard speculum was placed posteriorly. The uterosacral ligaments were clamped, cut, and ligated using a Shanon ligature of 2-0 Polysorb. Two additional pedicles were taken on the right and the left to ligate the remnant of the lower broad ligament and the uterus was then delivered vaginally. The pedicles were inspected. There was an area just above the left uterosacral ligament that was bleeding and was clamped and ligated using a [place]on ligature of 2-0 Polysorb. The retained uterosacral ligaments were ligated to the vaginal apices bilaterally and the vaginal mucosa was then closed with a running lock suture of 0 Polysorb. The catheter was then removed and cystoscopy was performed using sterile saline as the distending medium. There was no evidence of any trauma to the bladder mucosa. IV fluorescein and Lasix had been given. There was copious flow from bilateral ureteral orifices. The bladder was drained. Kirk catheter was replaced. Speculum was placed in the vagina, was hemostatic. Then, attention was then turned to the abdomen. After sewage plant operator's gloves were again changed and the abdomen was reinsufflated, the pelvis was carefully irrigated and inspected on high and low pressure, remained completely hemostatic. Therefore, the abdomen was desufflated completely. The port sites were removed. The skin was closed with subcuticular suture of 4-0 Monocryl. The vagina was again inspected, was hemostatic. Final sponge, needle, and instrument counts were reported as correct. There were no known complications. The patient was transferred to recovery in good condition. DAPHNE GAXIOLA /[id number]
[2019-05-21] MEDS ORDERED: Morphine 10 MG/ML Syringe IVPUSH PRN (12:00)
--- NOTE | 2019-05-21 14:04 | PCM.POSTAN ---
POST ANESTHESIA ASSESSMENT - MENTAL STATUS Mental Status: Alert, Oriented - VITAL SIGNS Vital Signs: Last Vital Signs Temp 96.4 F 05/21/19 13:45 Pulse 60 05/21/19 13:45 Resp 15 05/21/19 13:45 BP 101/61 05/21/19 13:45 Pulse Ox 97 05/21/19 13:45 - RESPIRATORY Respiratory Status: Respiratory Rate WNL, Airway Patent, O2 Saturation Stable - CARDIOVASCULAR CV Status: Pulse Rate WNL, Blood Pressure Stable - GASTROINTESTINAL GI Status: No Symptoms - POST OP HYDRATION Hydration Status: Adequate & Stable
[2019-05-21] MEDS: Ketorolac 30 MG/ML SDV IVPUSH SCH ×3 (15:44→22:35)
[2019-05-21] MEDS: Acetaminophen/oxyCODONE 325-5 MG Tab PO PRN (21:03)
[2019-05-22] MEDS: Acetaminophen/oxyCODONE 325-5 MG Tab PO PRN (02:38)
[2019-05-22] MEDS: Ketorolac 30 MG/ML SDV IVPUSH SCH (05:55)
[2019-05-22 06:28] LABS: BLOOD UREA NITROGEN,BUN 7 mg/dL (7.0-18.0); CARBON DIOXIDE,CO2 26.2 mmol/L (21.0-32.0); CHLORIDE,CL 107 mmol/L (98-107); GLUCOSE RANDOM 96 mg/dL (74-106); SODIUM,NA 140 mmol/L (136-145)
--- NOTE | 2019-05-22 08:27 | PCM.SURGPN ---
- General Info Date of Service: 05/22/19 Date of Surgery/Procedure: 05/21/19 POD#: 1 Post-Op Diagnosis: pelvic and perineal pain Admission Diagnosis/Problem: Pelvic and perineal pain Functional Status: Reports: Pain Controlled, Tolerating Diet, Ambulating ( ambulated this am without dizziness). Denies: Urinating (sánchez still in) - Review of Systems General: Reports: No Symptoms HEENT: Reports: No Symptoms Pulmonary: Reports: No Symptoms Cardiovascular: Reports: No Symptoms Gastrointestinal: Reports: No Symptoms Genitourinary: Reports: No Symptoms Musculoskeletal: Reports: No Symptoms Skin: Reports: No Symptoms Neurological: Reports: No Symptoms Psychiatric: Reports: No Symptoms - Patient Data Vitals - Most Recent: Last Vital Signs Temp 36.4 C 05/22/19 08:06 Pulse 75 05/22/19 08:06 Resp 16 05/22/19 08:06 BP 86/56 L 05/22/19 08:06 Pulse Ox 96 05/22/19 08:06 Weight - Most Recent: 72.575 kg I&O - Last 24 Hours: Intake & Output 05/21/19 05/22/19 05/22/19 22:59 06:59 14:59 Intake Total 782 200 Output Total 1250 725 Balance -468 -525 Lab Results Last 24 Hrs: Laboratory Results - last 24 hr 05/21/19 05/22/19 05/22/19 Range/Units 07:11 05:25 05:25 WBC 11.09 H (4.0-11.0) K/uL RBC 3.69 L (4.30-5.90) M/uL Hgb 11.0 L (12.0-16.0) g/dL Hct 33.2 L (36.0-46.0) % MCV 90.0 (80.0-98.0) fL MCH 29.8 (27.0-32.0) pg MCHC 33.1 (31.0-37.0) g/dL RDW Std Deviation 46.1 (28.0-62.0) fl RDW Coeff of Mike 14 (11.0-15.0) % Plt Count 242 (150-400) K/uL MPV 11.80 (7.40-12.00) fL Neut % (Auto) 63.4 (48.0-80.0) % Lymph % (Auto) 27.3 (16.0-40.0) % [place] % (Auto) 8.4 (0.0-15.0) % Eos % (Auto) 0.7 (0.0-7.0) % Baso % (Auto) 0.2 (0.0-1.5) % Neut # (Auto) 7.0 H (1.4-5.7) K/uL Lymph # (Auto) 3.0 H (0.6-2.4) K/uL [place] # (Auto) 0.9 H (0.0-0.8) K/uL Eos # (Auto) 0.1 (0.0-0.7) K/uL Baso # (Auto) 0.0 (0.0-0.1) K/uL Nucleated RBC % 0.0 /100WBC Nucleated RBCs # 0 K/uL Sodium 140 (136-145) mmol/L Potassium 4.0 (3.5-5.1) mmol/L Chloride 107 (98-107) mmol/L Carbon Dioxide 26.2 (21.0-32.0) mmol/L BUN 7 (7.0-18.0) mg/dL Creatinine 0.8 (0.6-1.0) mg/dL Est Cr Clr Drug Dosing 80.17 mL/min Estimated GFR (MDRD) > 60.0 ml/min Glucose 96 (74-106) mg/dL Calcium 8.3 L (8.5-10.1) mg/dL Blood Type A POSITIVE Antibody Screen NEGATIVE Cold Antibody Screen POSITIVE Med Orders - Current: Current Medications Fentanyl (Sublimaze) 50 mcg IVPUSH Q5M PRN PRN Reason: Pain Lactated Ringer's (Ringers, Lactated) 1,000 mls @ 125 mls/hr IV ASDIRECTED AIDAN Last Infusion: 05/22/19 00:40 Dose: Infused Ketorolac Tromethamine (Toradol) 30 mg IVPUSH Q6H [facility] Stop: 05/26/19 10:10 Last Admin: 05/22/19 05:55 Dose: 30 mg Morphine Sulfate (Morphine) 4 mg IVPUSH Q2H PRN PRN Reason: Pain (severe 7-10) Last Admin: 05/21/19 11:49 Dose: 4 mg Ondansetron HCl (Zofran) 4 mg IVPUSH Q4H PRN PRN Reason: Nausea Last Admin: 05/21/19 11:18 Dose: 4 mg Ondansetron HCl (Zofran) 4 mg IVPUSH Q6H PRN PRN Reason: Nausea/Vomiting Oxycodone/Acetaminophen (Percocet 325-5 Mg) 1 tab PO Q4H PRN PRN Reason: Pain (moderate 4-6) Last Admin: 05/22/19 02:38 Dose: 1 tab Oxycodone/Acetaminophen (Percocet 325-5 Mg) 2 tab PO Q4H PRN PRN Reason: Pain (moderate 4-6) Promethazine HCl (Phenergan) 25 mg IM Q6H PRN PRN Reason: Nausea/Vomiting Last Admin: 05/21/19 15:04 Dose: 25 mg Discontinued Medications Bupivacaine HCl (Sensorcaine-Mpf 0.25%) Confirm Administered Dose 20 ml .ROUTE .STK-MED ONE Stop: 05/21/19 07:47 Cefazolin Sodium (Ancef) Confirm Administered Dose 2 gm .ROUTE .STK-MED ONE Stop: 05/21/19 07:46 Dexamethasone (Dexamethasone) Confirm Administered Dose 20 mg .ROUTE .STK-MED ONE Stop: 05/21/19 07:21 Fentanyl (Sublimaze) Confirm Administered Dose 250 mcg .ROUTE .STK-MED ONE Stop: 05/21/19 07:02 Fluorescein Sodium ([place]-Fluor) Confirm Administered Dose 5 ml .ROUTE .STK-MED ONE Stop: 05/21/19 08:24 Furosemide (Lasix) Confirm Administered Dose 40 mg .ROUTE .STK-MED ONE Stop: 05/21/19 09:19 Glycopyrrolate (Robinul) Confirm Administered Dose 0.2 mg .ROUTE .STK-MED ONE Stop: 05/21/19 07:21 Hydromorphone HCl (Dilaudid) Confirm Administered Dose 2 mg .ROUTE .STK-MED ONE Stop: 05/21/19 08:46 Cefazolin Sodium/Dextrose 2 gm (/ Premix) 50 mls @ 100 mls/hr IV ONETIME ONE Stop: 05/21/19 06:45 Sodium Chloride (Normal Saline) Confirm Administered Dose 20 mls @ as directed .ROUTE .STK-MED ONE Stop: 05/21/19 07:46 Ketorolac Tromethamine (Toradol) Confirm Administered Dose 30 mg .ROUTE .STK- MED ONE Stop: 05/21/19 07:21 Ketorolac Tromethamine (Toradol) 30 mg IVPUSH ONETIME ONE Stop: 05/21/19 10:11 Lidocaine (Xylocaine-Mpf 2%) Confirm Administered Dose 5 ml .ROUTE .STK-MED ONE Stop: 05/21/19 07:21 Methylene Blue (Provayblue) Confirm Administered Dose 50 mg .ROUTE .STK-MED ONE Stop: 05/21/19 07:47 Methylene Blue (Provayblue) Confirm Administered Dose 50 mg .ROUTE .STK-MED ONE Stop: 05/21/19 08:32 Midazolam HCl (Versed 1 Mg/Ml) Confirm Administered Dose 2 mg .ROUTE .STK-MED ONE Stop: 05/21/19 07:02 Morphine Sulfate (Morphine) 4 mg IVPUSH Q2H PRN PRN Reason: Pain (severe 7-10) Octyl Cyanoacrylate (Dermabond Advance) Confirm Administered Dose 1 applic .ROUTE .STK-MED ONE Stop: 05/21/19 09:29 Ondansetron HCl (Zofran) Confirm Administered Dose 4 mg .ROUTE .STK-MED ONE Stop: 05/21/19 07:21 Propofol (Diprivan 20 Ml) Confirm Administered Dose 200 mg .ROUTE .STK-MED ONE Stop: 05/21/19 07:02 Rocuronium [place] (Zemuron) Confirm Administered Dose 100 mg .ROUTE .STK-MED ONE Stop: 05/21/19 07:21 Sugammadex Sodium (Bridion) Confirm Administered Dose 200 mg .ROUTE .STK-MED ONE Stop: 05/21/19 07:24 - Exam Wound/Incisions: Dressing Dry and Intact General: Alert, Oriented HEENT: Pupils Equal Neck: Supple Lungs: Clear to Auscultation, Normal Respiratory Effort Cardiovascular: Regular Rate, Regular Rhythm GI/Abdominal Exam: Normal Bowel Sounds, Non-Tender, No Distention, Pelvis Stable Extremities: Normal Inspection, Non-Tender, No Pedal Edema Skin: Warm, Dry, Intact Psy/Mental Status: Alert, Normal Affect, Normal Mood - Problem List & Annotations (1) Pelvic and perineal pain SNOMED Code(s): 412042941 Code(s): R10.2 - PELVIC AND PERINEAL PAIN Status: Acute Current Visit: Yes - Problem List Review Problem List Initiated/Reviewed/Updated: Yes - My Orders Last 24 Hours: Active Orders 24 hr Category Date Time Status Patient Status [ADT] Routine ADT 05/21/19 10:10 Active Antiembolic Devices [RC] PER UNIT ROUTINE Care 05/21/19 10:11 Active Notify Provider Intake and Out [RC] ASDIRECTED Care 05/21/19 10:10 Active Notify Provider Vital Signs [RC] ASDIRECTED Care 05/21/19 10:10 Active Oxygen Therapy [RC] ASDIRECTED Care 05/21/19 10:10 Active RT Incentive Spirometry [RC] Q2HWA Care 05/21/19 10:10 Active Up With Assistance [RC] PER UNIT ROUTINE Care 05/21/19 10:10 Active Up ad Janice [RC] PER UNIT ROUTINE Care 05/21/19 10:10 Active Urinary Catheter Removal [RC] Per Unit Routine Care 05/21/19 10:10 Active Vital Signs [RC] PER UNIT ROUTINE Care 05/21/19 10:10 Active Regular Diet [DIET] Diet 05/21/19 Dinner Active Acetaminophen/oxyCODONE [Percocet 325-5 MG] Med 05/21/19 10:10 Active 1 tab PO Q4H PRN Acetaminophen/oxyCODONE [Percocet 325-5 MG] Med 05/21/19 10:10 Active 2 tab PO Q4H PRN Ketorolac [Toradol] Med 05/21/19 10:15 Active 30 mg IVPUSH Q6H Morphine Med 05/21/19 12:00 Active 4 mg IVPUSH Q2H PRN Ondansetron [Zofran] Med 05/21/19 08:21 Active 4 mg IVPUSH Q4H PRN Ondansetron [Zofran] Med 05/21/19 10:10 Active 4 mg IVPUSH Q6H PRN Promethazine [Phenergan] Med 05/21/19 10:10 Active 25 mg IM Q6H PRN fentaNYL [Sublimaze] Med 05/21/19 08:21 Active 50 mcg IVPUSH Q5M PRN Peripheral IV Discontinue [OM.PC] Routine Oth 05/21/19 10:10 Ordered Sequential Compression Device [OM.PC] Per Unit Routine Oth 05/21/19 10:10 Ordered Resuscitation Status Routine Resus Stat 05/21/19 10:10 Ordered Medication Orders Fentanyl (Sublimaze) 50 mcg IVPUSH Q5M PRN PRN Reason: Pain Lactated Ringer's (Ringers, Lactated) 1,000 mls @ 125 mls/hr IV ASDIRECTED [facility] Last Infusion: 05/22/19 00:40 Dose: 0 mls/hr Admin: 05/21/19 16:36 Dose: 125 mls/hr Infusion: 05/21/19 15:11 Dose: 125 mls/hr Admin: 05/21/19 07:11 Dose: 125 mls/hr Ketorolac Tromethamine (Toradol) 30 mg IVPUSH Q6H [facility] Stop: 05/26/19 10:10 Last Admin: 05/22/19 05:55 Dose: 30 mg Admin: 05/21/19 22:35 Dose: 30 mg Admin: 05/21/19 16:31 Dose: 30 mg Admin: 05/21/19 15:44 Dose: Morphine Sulfate (Morphine) 4 mg IVPUSH Q2H PRN PRN Reason: Pain (severe 7-10) Last Admin: 05/21/19 11:49 Dose: 4 mg Ondansetron HCl (Zofran) 4 mg IVPUSH Q4H PRN PRN Reason: Nausea Last Admin: 05/21/19 11:18 Dose: 4 mg Ondansetron HCl (Zofran) 4 mg IVPUSH Q6H PRN PRN Reason: Nausea/Vomiting Oxycodone/Acetaminophen (Percocet 325-5 Mg) 1 tab PO Q4H PRN PRN Reason: Pain (moderate 4-6) Last Admin: 05/22/19 02:38 Dose: 1 tab Admin: 05/21/19 21:03 Dose: 1 tab Oxycodone/Acetaminophen (Percocet 325-5 Mg) 2 tab PO Q4H PRN PRN Reason: Pain (moderate 4-6) Promethazine HCl (Phenergan) 25 mg IM Q6H PRN PRN Reason: Nausea/Vomiting Last Admin: 05/21/19 15:04 Dose: 25 mg - Assessment Assessment (Free Text/Narrative):: POD#1 after LAVH, stable, mild hypotension, not significantly different than baseline and asymptomatic with ambulation, pain well controlled, minimal vaginal bleeding. Would like to go home. - Plan Plan (Free Text/Narrative):: Reviewed discharge instructions and precautions. Dismiss to home.
== END 2019-05-22 10:35 | disposition home or self-care (01) ==
LOC: MW.SDS 06:32 → MW.OB 10:07 → MW.SDS 05-22 10:35
PROVIDERS: ATTEND Obstetrics & Gynecology
DX: N94.6 Dysmenorrhea, unspecified (principal); N73.6 Female pelvic peritoneal adhesions (postinfective); F52.6 Dyspareunia not due to a substance or known physiological condition; N83.8 Other noninflammatory disorders of ovary, fallopian tube and broad ligament; Z90.79 Acquired absence of other genital organ(s); Z87.891 Personal history of nicotine dependence; Z91.018 Allergy to other foods
CPT/HCPCS: 36415; 58550; 80048; 84703; 85025; 85027; 86156; 86850; 86900; 86901; A9270; J0690; J1100; J1170; J1885; J1940; J2001; J2250; J2270; J2405; J2550; J2704; J3010; J3490; J7120; 00944

== ENCOUNTER 2019-06-03 15:13 | Emergency (ER) | payer OTHER ==
--- NOTE | 2019-06-03 15:43 | EDM.PDOC ---
ED HPI GENERAL MEDICAL PROBLEM - General Chief Complaint: ENT Problem Stated Complaint: SICK Time Seen by Provider: 06/03/19 15:15 Source of Information: Reports: Patient History Limitations: Reports: No Limitations - History of Present Illness INITIAL COMMENTS - FREE TEXT/NARRATIVE: HISTORY AND PHYSICAL: History of present illness: Patient is a 34-year-old female who presents to the ED today for concern of cough and feeling feverish since yesterday. Patient states she has not checked her temperature at home. Patient states she had a hysterectomy performed by Dr. Moy approximately 2 weeks ago and had called Dr. Moy's clinic today to let her know about the cough and feeling feverish and was told to come be evaluated in the ED. Patient states she is not having any pain of the lower abdomen and that the incisions appear to be healing well. Patient states that since the hysterectomy her pain is been getting less and less each day and she is not having any abdominal symptoms. She denies any other symptoms or concerns. Patient denies chest pain, shortness of breath. Denies headache, neck stiff ness , change in vision, syncope, or near syncope. Denies nausea, vomiting, abdominal pain, diarrhea, constipation, or dysuria. Has not noted any blood in urine or stool. Patient has been eating and drinking appropriately. Review of systems: As per history of present illness and below otherwise all systems reviewed and negative. Past medical history: As per history of present illness and as reviewed below otherwise noncontributory. Surgical history: As per history of present illness and as reviewed below otherwise noncontributory. Social history: See social history for further information Family history: As per history of present illness and as reviewed below otherwise noncontributory. Physical exam: General: Patient is alert, oriented, and in no acute distress. Patient sitting comfortably on exam table. HEENT: Atraumatic, normocephalic, pupils equal and reactive bilaterally, negative for conjunctival pallor or scleral icterus, mucous membranes moist, TMs normal bilaterally, throat clear, neck supple, nontender, trachea midline. No drooling or trismus noted. No meningeal signs. No hot potato voice noted. Lungs: Clear to auscultation, breath sounds equal bilaterally, chest nontender. Dry cough on exam. Heart: S1S2, regular rate and rhythm without overt murmur Abdomen: Soft, nondistended, nontender. Surgical scarring consistent with recent surgical history. The incisions are well-healed without any erythema or drainage or warmth. negative for masses or hepatosplenomegaly. Negative for costovertebral tenderness. Pelvis: Stable nontender. Genitourinary: Deferred. Rectal: Deferred. Skin: Intact, warm, dry. No lesions or rashes noted. Extremities: Atraumatic, negative for cords or calf pain. Neurovascular unremarkable. Neuro: Awake, alert, oriented. Cranial nerves II through XII unremarkable. Cerebellum unremarkable. Motor and sensory unremarkable throughout. Exam nonfocal. Notes: Dr. Moy, GLEASON OPERATOR on-call for [facility], was consulted on patient and agrees that patient does not need any abdominal imaging at this time. Discussed importance of follow-up with her primary care provider and Dr. Moy. Voices understanding and is agreeable to plan of care. Denies any further questions or concerns at this time. Diagnostics: Influenza, strep, CBC, CMP, UA, chest x-ray Therapeutics: None Prescription: Proair inhaler Impression: Tracheobronchitis Plan: 1. Take medication as prescribed. You can alternate ibuprofen and Tylenol as directed for pain and discomfort. 2. Follow-up with your primary care provider and Dr. Moy as scheduled and as discussed. Return to the ED as needed and as discussed. Definitive disposition and diagnosis as appropriate pending reevaluation and review of above. Lower Abdominal Pain Score (Numeric/FACES): 3 - Related Data Allergies Allergy/AdvReac Type Severity Reaction Status Date / Time [place] Allergy Anaphylactic Verified 06/03/19 15:18 Shock Home Meds: Home Meds Acetaminophen [Tylenol] 2 tab PO ASDIRECTED PRN 05/14/19 [History] Ibuprofen [Motrin] 1 - 2 tab PO ASDIRECTED PRN 05/14/19 [History] Acetaminophen/oxyCODONE [Percocet 325-5 MG] 1 tab PO Q4H PRN #20 tablet [Rx] Ibuprofen 800 mg PO Q6H PRN #20 tablet 05/22/19 [Rx] Past Medical History - Past Health History Medical/Surgical History: Denies Medical/Surgical History HEENT History: Reports: Impaired Vision Other HEENT History: wears glasses Cardiovascular History: Reports: None Respiratory History: Reports: None Gastrointestinal History: Reports: Other (See Below) Other Gastrointestinal History: Gastric lesion Genitourinary History: Reports: UTI, Recurrent GLEASON OPERATOR History: Reports: , Other (See Below) Other GLEASON OPERATOR History: Infertility, IVF conceptions, laparoscopy for infection in tubes. Painful intercoarse. Musculoskeletal History: Reports: None Neurological History: Reports: None Psychiatric History: Reports: None Endocrine/Metabolic History: Reports: None Hematologic History: Reports: None Immunologic History: Reports: None Oncologic (Cancer) History: Reports: None Dermatologic History: Reports: None - Infectious Disease History Infectious Disease History: Reports: Chicken Pox - Past Surgical History Head Surgeries/Procedures: Reports: None HEENT Surgical History: Reports: None Cardiovascular Surgical History: Reports: None Respiratory Surgical History: Reports: None GI Surgical History: Reports: Colonoscopy, EGD Female Surgical History: Reports: Hysterectomy, Other (See Below) Other Female Surgeries/Procedures: laparoscopic Bilateral salpingectomy Endocrine Surgical History: Reports: None Neurological Surgical History: Reports: None Musculoskeletal Surgical History: Reports: None Oncologic Surgical History: Reports: None Dermatological Surgical History: Reports: None Social & Family History - Family History Cardiac: Reports: High Cholesterol, Hypertension, [place] OBGYN: Reports: Psychiatric: Reports: Anxiety, Depression, Emotional Problems - Tobacco Use Smoking Status *Q: Former Smoker Used Tobacco, but Quit: Yes Month/Year Tobacco Last Used: 2015 - Caffeine Use Caffeine Use: Reports: Coffee - Recreational Drug Use Recreational Drug Use: No ED ROS GENERAL - Review of Systems Review Of Systems: Comprehensive ROS is negative, except as noted in HPI. ED EXAM, GENERAL - Physical Exam Exam: See Below (see dictation) Course - Vital Signs Last Recorded V/S: Last Vital Signs Temp 98.1 F 06/03/19 15:18 Pulse 107 H 06/03/19 15:18 Resp 19 06/03/19 15:18 BP 129/84 06/03/19 15:18 Pulse Ox 96 06/03/19 15:18 - Orders/Labs/Meds Orders: Active Orders 24 hr Category Date Time Status CULTURE STREP A CONFIRMATION [RM] Stat Lab 06/03/19 15:40 Results CULTURE URINE [RM] Stat Lab 06/03/19 15:42 Received STREP SCRN A RAPID W CULT CONF [RM] Stat Lab 06/03/19 15:40 Results Labs: Laboratory Tests 06/03/19 06/03/19 06/03/19 Range/Units 15:42 15:50 15:50 WBC 8.57 (4.0-11.0) K/uL RBC 4.53 (4.30-5.90) M/uL Hgb 13.5 (12.0-16.0) g/dL Hct 40.7 (36.0-46.0) % MCV 89.8 (80.0-98.0) fL MCH 29.8 (27.0-32.0) pg MCHC 33.2 (31.0-37.0) g/dL RDW Std Deviation 45.8 (28.0-62.0) fl RDW Coeff of Mike 14 (11.0-15.0) % Plt Count 304 (150-400) K/uL MPV 10.70 (7.40-12.00) fL Neut % (Auto) 63.1 (48.0-80.0) % Lymph % (Auto) 28.1 (16.0-40.0) % Gove % (Auto) 7.6 (0.0-15.0) % Eos % (Auto) 1.1 (0.0-7.0) % Baso % (Auto) 0.1 (0.0-1.5) % Neut # (Auto) 5.4 (1.4-5.7) K/uL Lymph # (Auto) 2.4 (0.6-2.4) K/uL Gove # (Auto) 0.7 (0.0-0.8) K/uL Eos # (Auto) 0.1 (0.0-0.7) K/uL Baso # (Auto) 0.0 (0.0-0.1) K/uL Nucleated RBC % 0.0 /100WBC Nucleated RBCs # 0 K/uL Sodium 140 (136-145) mmol/L Potassium 4.0 (3.5-5.1) mmol/L Chloride 104 (98-107) mmol/L Carbon Dioxide 23.5 (21.0-32.0) mmol/L BUN 7 (7.0-18.0) mg/dL Creatinine 0.8 (0.6-1.0) mg/dL Est Cr Clr Drug Dosing 78.37 mL/min Estimated GFR (MDRD) > 60.0 ml/min Glucose 88 (74-106) mg/dL Calcium 8.2 L (8.5-10.1) mg/dL Total Bilirubin 0.4 (0.2-1.0) mg/dL AST 13 L (15-37) IU/L ALT 13 L (14-63) IU/L Alkaline Phosphatase 56 (46-116) U/L Total Protein 7.9 (6.4-8.2) g/dL Albumin 3.7 (3.4-5.0) g/dL Globulin 4.2 H (2.6-4.0) g/dL Albumin/Globulin Ratio 0.9 (0.9-1.6) Urine Color YELLOW Urine Appearance CLEAR Urine pH 6.5 (5.0-8.0) Ur Specific [place] 1.010 (1.001-1.035) Urine Protein NEGATIVE (NEGATIVE) mg/dL Urine Glucose (UA) NEGATIVE (NEGATIVE) mg/dL Urine Ketones NEGATIVE (NEGATIVE) mg/dL Urine Occult Blood NEGATIVE (NEGATIVE) Urine Nitrite NEGATIVE (NEGATIVE) Urine Bilirubin NEGATIVE (NEGATIVE) Urine Urobilinogen 0.2 (<2.0) EU/dL Ur Leukocyte Esterase SMALL H (NEGATIVE) Urine RBC 0-2 (0-2/HPF) Urine WBC 0-2 (0-5/HPF) Ur Epithelial Cells RARE (NONE-FEW) Urine Bacteria RARE (NEGATIVE) Departure - Departure Time of Disposition: 16:40 Disposition: Home, Self-Care 01 Clinical Impression: Tracheobronchitis - Discharge Information Referrals: PCP,None [Primary Care Provider] - Forms: ED Department Discharge Additional Instructions: The following information is given to patients seen in the emergency department who are being discharged to home. This information is to outline your options for follow-up care. We provide all patients seen in our emergency department with a follow-up referral. The need for follow-up, as well as the timing and circumstances, are variable depending upon the specifics of your emergency department visit. If you don't have a primary care physician on staff, we will provide you with a referral. We always advise you to contact your personal physician following an emergency department visit to inform them of the circumstance of the visit and for follow-up with them and/or the need for any referrals to a consulting specialist. The emergency department will also refer you to a specialist when appropriate. This referral assures that you have the opportunity for follow-up care with a specialist. All of these measure are taken in an effort to provide you with optimal care, which includes your follow-up. Under all circumstances we always encourage you to contact your private physician who remains a resource for coordinating your care. When calling for follow-up care, please make the office aware that this follow-up is from your recent emergency room visit. If for any reason you are refused follow-up, please contact the [facility] Emergency Department at and asked to speak to the emergency department charge nurse. [facility] [address] [place] [id number] [facility] [address] [place] [id number] [facility] [address] [place] [id number] 1. Take medication as prescribed. You can alternate ibuprofen and Tylenol as directed for pain and discomfort. 2. Follow-up with your primary care provider and Dr. Moy as scheduled and as discussed. Return to the ED as needed and as discussed. Sepsis Event Note - Evaluation Sepsis Screening Result: No Definite Risk - Focused Exam Vital Signs: Vital Signs Temp Pulse Resp BP Pulse Ox 06/03/19 15:18 98.1 F 107 H 19 129/84 96 Date Exam was Performed: 06/03/19 Time Exam was Performed: 16:38 - My Orders Last 24 Hours: My Active Orders 06/03/19 15:40 CULTURE STREP A CONFIRMATION [RM] Stat STREP SCRN A RAPID W CULT CONF [RM] Stat 06/03/19 15:42 CULTURE URINE [RM] Stat - Assessment/Plan Last 24 Hours: My Active Orders 06/03/19 15:40 CULTURE STREP A CONFIRMATION [RM] Stat STREP SCRN A RAPID W CULT CONF [RM] Stat 06/03/19 15:42 CULTURE URINE [RM] Stat
[2019-06-03 16:22] LABS: BLOOD UREA NITROGEN,BUN 7 mg/dL (7.0-18.0); CARBON DIOXIDE,CO2 23.5 mmol/L (21.0-32.0); CHLORIDE,CL 104 mmol/L (98-107); GLUCOSE RANDOM 88 mg/dL (74-106); SODIUM,NA 140 mmol/L (136-145)
--- NOTE | 2019-06-03 16:22 | CR ---
Indication: Cough for 5 days. Technique: PA and lateral views of the chest. Comparison: None Findings: The right hemidiaphragm is mildly elevated. The heart is normal in size. The lungs are clear. No infiltrate, pleural effusion, or pneumothorax is identified. Impression: No acute cardiopulmonary process Dictated by Ryann Aleman MD @ Jun 03 2019 4:20PM Signed by Dr. Ryann Aleman @ Jun 03 2019 4:21PM
== END 2019-06-03 16:45 | disposition home or self-care (01) ==
LOC: MW.ED 15:13
DX: J40 Bronchitis, not specified as acute or chronic (principal); Z91.018 Allergy to other foods; Z87.891 Personal history of nicotine dependence
CPT/HCPCS: 36415; 71046; 71046-26; 80053; 81001; 85025; 87081; 87086; 87804; 87880-QW; 99283; 99283-25